=== PATIENT | male | born 1980 | race Caucasian/White ===

== ENCOUNTER 2020-08-09 14:09 | Emergency (ER) | payer OTHER, MEDICAID, SELFPAY ==
[2020-08-09 14:35] VITALS: BP 146/98; PULSE 105; RESP 18; TEMP 36.8; O2SAT 95; BMI 35.5
--- NOTE | 2020-08-09 14:53 | DI.RAD.S_ITS ---
PROCEDURE: XR ACUTE ABDOMEN SERIES INDICATIONS: ? hernia/abdominal pain TECHNIQUE: One view chest and two views of the abdomen were acquired. COMPARISON: None. FINDINGS: Surgical changes and devices: None. Chest: Lungs are clear. Heart size is normal. No pleural effusions. No pneumoperitoneum. Abdomen: Bowel gas pattern is nonspecific. No suspicious calcifications. Visualized solid organ contours appear normal. Bones: No suspicious bony lesions. IMPRESSION: Nonspecific bowel gas pattern without definite evidence of obstruction. If patient's symptoms persist or worsen, consider CT scan of the abdomen/pelvis for further evaluation. Dictated by: Ximena Khan MD, PhD on 08/09/2020 at 15:38 Approved by: Ximena Khan MD, PhD on 08/09/2020 at 15:39
--- NOTE | 2020-08-09 14:55 | ED.PSYCH ---
HPI - Psych <Renae Stanton DO - Last Filed: 08/09/20 18:28> General Chief Complaint: Psychiatric Symptoms Stated Complaint: hallucenations and suicidal Time Seen by Provider: 08/09/20 14:26 Source: patient and family Mode of arrival: Ambulatory Limitations: no limitations History of Present Illness HPI Narrative: This is a 39-year-old male who comes emergency department with complaint of auditory hallucinations which he states have been longstanding. He states that he does feel suicidal, he does have a plan but that he is not wanting to share. He states that this is been a longstanding issue and is not new or different for him. Today he went to primary care office to establish care and refill medications which ran out about 1-2 weeks ago and he was sent here because of his auditory hallucinations and suicidal thoughts. He is accompanied by his partner. Patient moved from [place] about a month ago and has had trouble establishing care here locally and this is his 1st appointment today. Patient states he has been hospitalized in the past for PTSD. He denies any thoughts of harm to others. He states he does have hypertension, he states he has a long list of medical problems and takes multiple medications but is unable to describe most of them. He does know that he took clonazepam, hydrochlorothiazide and use clonidine patches. Patient does drink alcohol he is unclear about the amount but does say it is large amount and that he wants to drink all the time, he does use tobacco, rare THC but no illicit. His partner also confirms this as well. He is also noted to have some discomfort in the umbilical area. Related Data Previous Rx's Medication Instructions Recorded quetiapine 25 mg tablet 25 mg PO BID #28 tab 08/09/20 Allergies Allergy/AdvReac Type Severity Reaction Status Date / Time tramadol AdvReac Verified 08/09/20 13:13 Review of Systems <Renae Stanton DO - Last Filed: 08/09/20 18:28> Review of Systems ROS Unobtainable: All systems reviewed & are unremarkable except as noted in HPI and below Patient History <Renae Stanton DO - Last Filed: 08/09/20 18:28> Medical History (Updated 08/09/20 @ 16:31 by Renae Stanton DO) Acute depression (Chronic) Schizo affective schizophrenia (Suspected) Social History Smoking Status: Current every day smoker Smoking Status: Current every day smoker alcohol intake frequency: 3 or more drinks per day Exam <Renae Stanton DO - Last Filed: 08/09/20 18:28> Narrative Exam Narrative: GENERAL: Alert and oriented x three, obese male in moderate distress. HEENT: Head normocephalic, atraumatic, EOMI, pupils reactive, face symmetric, moist mucous membranes NECK: Supple, full range of motion CARDIOVASCULAR: Regular rate and rhythm without murmurs, rubs or gallops. RESPIRATORY: Breath sounds equal bilaterally, no wheezes rales or rhonchi. ABDOMEN: Soft, mild tenderness of the umbilical area with mild bulge. Normoactive bowel sounds all 4 quadrants. No guarding or rebound, rigidity, no mass : No CVA tenderness EXTREMITIES: Normal range of motion, no clubbing or edema. Neurovascularly intact NEUROLOGICAL: Cranial nerves II through XII grossly intact. Moving all extremities SKIN: Warm, dry, no petechiae, no rashes or lesions. PSYCH: Positive for suicidal thoughts, auditory hallucinations, negative for homicidal thoughts. Patient does jump from topic to topic but follows the conversation well. Initial Vital Signs Initial Vital Signs: Vital Signs Temperature 98.3 F 08/09/20 14:35 Pulse Rate 105 H 08/09/20 14:35 Respiratory Rate 18 08/09/20 14:35 Blood Pressure 146/98 H 08/09/20 14:35 Pulse Oximetry 95 08/09/20 14:35 <Roderick Ward DO - Last Filed: 08/10/20 06:33> Initial Vital Signs Initial Vital Signs: Vital Signs Temperature 98.3 F 08/09/20 14:35 Pulse Rate 105 H 08/09/20 14:35 Respiratory Rate 18 08/09/20 14:35 Blood Pressure 146/98 H 08/09/20 14:35 Pulse Oximetry 95 08/09/20 14:35 Scores <Renae Stanton DO - Last Filed: 08/09/20 18:28> GCS Geovani coma scale eye opening: Spontaneous Geovani coma scale verbal response: Orientated Geovani coma scale motor response: Obey commands [place] coma scale total score: 15 Course <Renae Stanton DO - Last Filed: 08/09/20 18:28> Orders Ordered: ED Orders 08/10/20 06:00 Ethanol (ETOH) Stat Discontinued Medications Lorazepam (Ativan) 2 mg PO NOW ONE Stop: 08/09/20 17:16 Last Admin: 08/09/20 17:23 Dose: 2 mg Documented by: BRIANA Lorazepam (Ativan) 1 mg PO NOW ONE Stop: 08/09/20 23:57 Last Admin: 08/09/20 23:59 Dose: 1 mg Documented by: BRIANA Lorazepam (Ativan) 1 mg PO NOW ONE Stop: 08/10/20 05:10 Last Admin: 08/10/20 05:59 Dose: Not Given Documented by: ANIBAL Lorazepam (Ativan) 1 mg IV NOW ONE Stop: 08/10/20 05:20 Last Admin: 08/10/20 05:59 Dose: Not Given Documented by: ANIBAL Lorazepam (Ativan) 1 mg PO NOW ONE Stop: 08/10/20 05:39 Last Admin: 08/10/20 06:00 Dose: Not Given Documented by: ANIBAL Lorazepam (Ativan) 1 mg IM NOW ONE Stop: 08/10/20 05:44 Last Admin: 08/10/20 05:57 Dose: 1 mg Documented by: ANIBAL Nicotine (Nicoderm) 21 mg TOP NOW ONE Stop: 08/09/20 14:54 Last Admin: 08/09/20 15:06 Dose: 21 mg Documented by: BRIANA Olanzapine (Zyprexa Zydis) 10 mg PO NOW ONE Stop: 08/09/20 14:54 Last Admin: 08/09/20 15:07 Dose: 10 mg Documented by: BRIANA Vital Signs Vital signs: Vital Signs - 8 hr 08/10/20 05:00 Temperature 97.4 F L Pulse Rate 95 H Respiratory Rate 16 Blood Pressure 152/112 H Pulse Oximetry 96 <Roderick Ward DO - Last Filed: 08/10/20 06:33> Orders Ordered: ED Orders 08/10/20 06:00 Ethanol (ETOH) Stat Discontinued Medications Lorazepam (Ativan) 2 mg PO NOW ONE Stop: 08/09/20 17:16 Last Admin: 08/09/20 17:23 Dose: 2 mg Documented by: BRIANA Lorazepam (Ativan) 1 mg PO NOW ONE Stop: 08/09/20 23:57 Last Admin: 08/09/20 23:59 Dose: 1 mg Documented by: BRIANA Lorazepam (Ativan) 1 mg PO NOW ONE Stop: 08/10/20 05:10 Last Admin: 08/10/20 05:59 Dose: Not Given Documented by: ANIBAL Lorazepam (Ativan) 1 mg IV NOW ONE Stop: 08/10/20 05:20 Last Admin: 08/10/20 05:59 Dose: Not Given Documented by: ANIBAL Lorazepam (Ativan) 1 mg PO NOW ONE Stop: 08/10/20 05:39 Last Admin: 08/10/20 06:00 Dose: Not Given Documented by: ANIBAL Lorazepam (Ativan) 1 mg IM NOW ONE Stop: 08/10/20 05:44 Last Admin: 08/10/20 05:57 Dose: 1 mg Documented by: ANIBAL Nicotine (Nicoderm) 21 mg TOP NOW ONE Stop: 08/09/20 14:54 Last Admin: 08/09/20 15:06 Dose: 21 mg Documented by: BRIANA Olanzapine (Zyprexa Zydis) 10 mg PO NOW ONE Stop: 08/09/20 14:54 Last Admin: 08/09/20 15:07 Dose: 10 mg Documented by: BRIANA Vital Signs Vital signs: Vital Signs - 8 hr 08/10/20 05:00 Temperature 97.4 F L Pulse Rate 95 H Respiratory Rate 16 Blood Pressure 152/112 H Pulse Oximetry 96 MDM - Psych <Renae Stanton, - Last Filed: 08/09/20 18:28> Lab Data Attestation: I reviewed the patient's lab results. Lab results narrative: Patient's labs show elevation in chloride, slight elevation in glucose and his ETOH is 378. X-ray shows no clear signs of obstruction with nospecific bowel gas pattern. Result diagrams: 08/09/20 15:30 08/09/20 15:30 Labs: Lab Results 08/09/20 08/09/20 08/09/20 Range/Units 15:30 15:30 15:30 WBC 9.6 (4.5-11.0) X10^3/uL RBC 5.03 (4.5-5.9) X10^6/uL Hgb 15.9 (13.5-17.5) g/dL Hct 47.2 (41-53) % MCV 93.9 (80-100) fL MCH 31.6 (26-34) PG MCHC 33.6 (30-36) % RDW 13.7 (11.6-14.8) % Plt Count 216 (150-400) X10^3/uL Neut % (Auto) 44.6 L (50-75) % Lymph % (Auto) 49.7 H (25-40) % [place] % (Auto) 3.9 (3-14) % Eos % (Auto) 0.8 L (2-4) % Baso % (Auto) 1.0 (0-2) % Neut # (Auto) 4300 (3504-8926) /uL Lymph # (Auto) 4800 H (8807-1325) /uL [place] # (Auto) 400 (0-900) /uL Eos # (Auto) 100 (0-450) /uL Baso # (Auto) 100 (0-100) /uL Sodium 145 (137-145) mmol/L Potassium 4.0 (3.4-5.1) mmol/L Chloride 110 H (98-107) mmol/L Carbon Dioxide 22 (22-32) mmol/L BUN 10 (9-20) mg/dL Creatinine 0.64 L (0.66-1.25) mg/dL Estimated GFR > 60.0 (>60) mL/min BUN/Creatinine Ratio 15.6 (6-22) Glucose 106 H (70-100) mg/dL Calcium 8.7 (8.4-10.2) mg/dL Total Bilirubin 0.4 (0.2-1.3) mg/dL AST 90 H (17-59) IU/L ALT 59 H (<50) IU/L Alkaline Phosphatase 87 (38-126) U/L Total Protein 8.6 H (6.3-8.2) g/dL Albumin 4.7 (3.5-5.0) g/dL Globulin 3.9 (1.7-4.1) g/dL Albumin/Globulin Ratio 1.2 (1.0-2.8) Lipase (23-300) U/L TSH 0.618 (0.47-4.68) uIU/mL Ethyl Alcohol 378 H ( - 10) mg/dL 10/29/20 10/30/20 Range/Units 15:30 06:00 WBC (4.5-11.0) X10^3/uL RBC (4.5-5.9) X10^6/uL Hgb (13.5-17.5) g/dL Hct (41-53) % MCV (80-100) fL MCH (26-34) PG MCHC (30-36) % RDW (11.6-14.8) % Plt Count (150-400) X10^3/uL Neut % (Auto) (50-75) % Lymph % (Auto) (25-40) % [place] % (Auto) (3-14) % Eos % (Auto) (2-4) % Baso % (Auto) (0-2) % Neut # (Auto) (5902-5565) /uL Lymph # (Auto) (4726-2162) /uL [place] # (Auto) (0-900) /uL Eos # (Auto) (0-450) /uL Baso # (Auto) (0-100) /uL Sodium (137-145) mmol/L Potassium (3.4-5.1) mmol/L Chloride (98-107) mmol/L Carbon Dioxide (22-32) mmol/L BUN (9-20) mg/dL Creatinine (0.66-1.25) mg/dL Estimated GFR (>60) mL/min BUN/Creatinine Ratio (6-22) Glucose (70-100) mg/dL Calcium (8.4-10.2) mg/dL Total Bilirubin (0.2-1.3) mg/dL AST (17-59) IU/L ALT (<50) IU/L Alkaline Phosphatase (38-126) U/L Total Protein (6.3-8.2) g/dL Albumin (3.5-5.0) g/dL Globulin (1.7-4.1) g/dL Albumin/Globulin Ratio (1.0-2.8) Lipase 216 (23-300) U/L TSH (0.47-4.68) uIU/mL Ethyl Alcohol 32 H ( - 10) mg/dL Imaging Data Abdominal x-ray: Radiologist's Impression: [address] [address] XRay Report Signed Patient: QuintinDeloris#: [id number] : 1980Acct:[id number] Age/Sex: 39 / MDate of Service: 08/09/20 Loc: ED Accession Number: [id number] Procedure: XR acute abdomen series Ordering Provider: Renae Stanton D.O. PROCEDURE: XR ACUTE ABDOMEN SERIES INDICATIONS: ? hernia/abdominal pain TECHNIQUE: One view chest and two views of the abdomen were acquired. COMPARISON: None. FINDINGS: Surgical changes and devices: None. Chest: Lungs are clear. Heart size is normal. No pleural effusions. No pneumoperitoneum. Abdomen: Bowel gas pattern is nonspecific. No suspicious calcifications. Visualized solid organ contours appear normal. Bones: No suspicious bony lesions. IMPRESSION: Nonspecific bowel gas pattern without definite evidence of obstruction. If patient's symptoms persist or worsen, consider CT scan of the abdomen/pelvis for further evaluation. Dictated by: Ximena Khan MD, PhD on 08/09/2020 at 15:38 Approved by: Ximena Khan MD, PhD on 08/09/2020 at 15:39 ECG Data Attestation: I personally reviewed and interpreted this ECG as follows: Prior ECG tracings: not available for review Interpretation: Sinus rhythm rate of 99 P are 168 QRS of 121 and QTC of 424. Patient has T-wave inversion, no elevation appreciated. RSR in V1. No prior EKG on record. MDM Narrative Medical decision making narrative: Patient sent by primary care for auditory hallucinations and suicidal ideation. Per patient this is a longstanding issue, he also has significant alcohol abuse according to him and his partner. I asked if he would speak with social which he did, patient was given Zyprexa as he is feeling quite anxious and nicotine patch. During his stay was cooperative but then left shortly after talking to the forensic social worker, he also left his partner behind in the ED. PD was contacted as patient is intoxicated and admits to suicidal ideation, patient was not able to be found outside the ED or on the grounds. Patient was found by PD. On initial contact he denied that he was himself, but was returned to the department. Patient placed in room 13 and clothes changes. Patient given ativan po for anxiety and potential withdrawl, asymptomatic. Patient is accompanied by his partner. Signed out to Dr. Ward. <Roderick Ward DO - Last Filed: 08/10/20 06:33> Lab Data Labs: Lab Results 08/09/20 08/09/20 08/09/20 Range/Units 15:30 15:30 15:30 WBC 9.6 (4.5-11.0) X10^3/uL RBC 5.03 (4.5-5.9) X10^6/uL Hgb 15.9 (13.5-17.5) g/dL Hct 47.2 (41-53) % MCV 93.9 (80-100) fL MCH 31.6 (26-34) PG MCHC 33.6 (30-36) % RDW 13.7 (11.6-14.8) % Plt Count 216 (150-400) X10^3/uL Neut % (Auto) 44.6 L (50-75) % Lymph % (Auto) 49.7 H (25-40) % [place] % (Auto) 3.9 (3-14) % Eos % (Auto) 0.8 L (2-4) % Baso % (Auto) 1.0 (0-2) % Neut # (Auto) 4300 (3412-2758) /uL Lymph # (Auto) 4800 H (5763-5644) /uL [place] # (Auto) 400 (0-900) /uL Eos # (Auto) 100 (0-450) /uL Baso # (Auto) 100 (0-100) /uL Sodium 145 (137-145) mmol/L Potassium 4.0 (3.4-5.1) mmol/L Chloride 110 H (98-107) mmol/L Carbon Dioxide 22 (22-32) mmol/L BUN 10 (9-20) mg/dL Creatinine 0.64 L (0.66-1.25) mg/dL Estimated GFR > 60.0 (>60) mL/min BUN/Creatinine Ratio 15.6 (6-22) Glucose 106 H (70-100) mg/dL Calcium 8.7 (8.4-10.2) mg/dL Total Bilirubin 0.4 (0.2-1.3) mg/dL AST 90 H (17-59) IU/L ALT 59 H (<50) IU/L Alkaline Phosphatase 87 (38-126) U/L Total Protein 8.6 H (6.3-8.2) g/dL Albumin 4.7 (3.5-5.0) g/dL Globulin 3.9 (1.7-4.1) g/dL Albumin/Globulin Ratio 1.2 (1.0-2.8) Lipase (23-300) U/L TSH 0.618 (0.47-4.68) uIU/mL Ethyl Alcohol 378 H ( - 10) mg/dL 08/09/20 08/10/20 Range/Units 15:30 06:00 WBC (4.5-11.0) X10^3/uL RBC (4.5-5.9) X10^6/uL Hgb (13.5-17.5) g/dL Hct (41-53) % MCV (80-100) fL MCH (26-34) PG MCHC (30-36) % RDW (11.6-14.8) % Plt Count (150-400) X10^3/uL Neut % (Auto) (50-75) % Lymph % (Auto) (25-40) % [place] % (Auto) (3-14) % Eos % (Auto) (2-4) % Baso % (Auto) (0-2) % Neut # (Auto) (8793-3930) /uL Lymph # (Auto) (7563-3437) /uL [place] # (Auto) (0-900) /uL Eos # (Auto) (0-450) /uL Baso # (Auto) (0-100) /uL Sodium (137-145) mmol/L Potassium (3.4-5.1) mmol/L Chloride (98-107) mmol/L Carbon Dioxide (22-32) mmol/L BUN (9-20) mg/dL Creatinine (0.66-1.25) mg/dL Estimated GFR (>60) mL/min BUN/Creatinine Ratio (6-22) Glucose (70-100) mg/dL Calcium (8.4-10.2) mg/dL Total Bilirubin (0.2-1.3) mg/dL AST (17-59) IU/L ALT (<50) IU/L Alkaline Phosphatase (38-126) U/L Total Protein (6.3-8.2) g/dL Albumin (3.5-5.0) g/dL Globulin (1.7-4.1) g/dL Albumin/Globulin Ratio (1.0-2.8) Lipase 216 (23-300) U/L TSH (0.47-4.68) uIU/mL Ethyl Alcohol 32 H ( - 10) mg/dL [facility] Narrative Medical decision making narrative: Dr ward: Patient stable overnight. Restraint order has been removed since he is no longer attempting to leave the emergency department. Was re-dosed a couple times with Ativan. Alcohol level now below legal limit. Is currently not expressing any SI however given his state of presentation last evening feel that re-evaluation by social work is needed. Care turned over to Dr. Cesar at change of shift to follow up. Discharge Plan Departure Patient Disposition: Xfer Psychiatric Hosp Clinical Impression: Hallucinations, Suicidal ideation, Alcohol intoxication Referrals: Chip Gonzalez MD [Primary Care Provider] - Stand Alone Forms: Against Medical Advice ED Sign-out <Renae Stanton, DO - Last Filed: 08/09/20 18:28> Sign Out Provider Sign Out Attestation: Patient Sign Out occurred on at . Patient's care was discussed, and care was transferred from to Dr. Ward.
[2020-08-09] MEDS: NICOTINE 21 MG PATCH TOP (15:06)
[2020-08-09] MEDS: OLANZapine ODT 10 MG TAB PO (15:07)
[2020-08-09 15:43] LABS: Add Manual Diff / Slide Review NO; Basophils Absolute Auto 100 /uL (0-100); Eosinophils Absolute Auto 100 /uL (0-450); Eosinophils Percent Auto 0.8 % (2-4); Hematocrit 47.2 % (41-53); Hemoglobin 15.9 g/dL (13.5-17.5); Lymphocytes Absolute Auto 4800 /uL (1100-4500); Lymphocytes Percent Auto 49.7 % (25-40); Mean Corpuscular HGB Conc 33.6 % (30-36); Mean Corpuscular Hemoglobin 31.6 PG (26-34); Mean Corpuscular Volume 93.9 fL (80-100); Monocytes Absolute Auto 400 /uL (0-900); Monocytes Percent Auto 3.9 % (3-14); Neutrophils Absolute Auto 4300 /uL (1500-7000); Neutrophils Percent Auto 44.6 % (50-75); Platelet Count 216 X10^3/uL (150-400); Red Blood Cell Count 5.03 X10^6/uL (4.5-5.9); Red Cell Distribution Width 13.7 % (11.6-14.8); White Blood Cell Count 9.6 X10^3/uL (4.5-11.0)
[2020-08-09 15:57] LABS: Alanine Aminotransferase 59 IU/L (<50); Albumin 4.7 g/dL (3.5-5.0); Albumin Globulin Ratio 1.2 (1.0-2.8); Alkaline Phosphatase 87 U/L (38-126); Aspartate Aminotransferase 90 IU/L (17-59); BUN Creatinine Ratio 15.6 (6-22); Bilirubin Total 0.4 mg/dL (0.2-1.3); Blood Urea Nitrogen 10 mg/dL (9-20); Calcium 8.7 mg/dL (8.4-10.2); Carbon Dioxide 22 mmol/L (22-32); Chloride 110 mmol/L (98-107); Estimated Glomerular Filt Rate > 60.0 mL/min (>60); Globulin 3.9 g/dL (1.7-4.1); Glucose 106 mg/dL (70-100); HEMOLYSIS < 15 (0-50); Lipase 216 U/L (23-300); Sodium 145 mmol/L (137-145); Total Protein 8.6 g/dL (6.3-8.2)
[2020-08-09 16:04] LABS: Ethanol (ETOH) 378 mg/dL
--- NOTE | 2020-08-09 16:25 | PC.NURSE ---
went to check on patient. Partner states patient just ran out of room approximately 1620. Hospital security notified and premises searched. 911 called and notified.
[2020-08-09 16:32] LABS: Thyroid Stimulating Hormone 0.618 uIU/mL (0.47-4.68)
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
--- NOTE | 2020-08-09 17:00 | PC.NURSE ---
[employer] and nursing staff in with Pt
--- NOTE | 2020-08-09 17:05 | PC.NURSE ---
Patient brought back to ED by [employer]. Placed into room 13, all belonging removed, and changed into paper scrubs. Significant other in room with patient per his request. Sitter outside room for 1:1.
--- NOTE | 2020-08-09 17:17 | PC.NURSE ---
Pt is laying in bed, significant other sitting in a chair close by. Pt seems calm, quiet.
[2020-08-09] MEDS: LORazepam 0.5 MG TABLET 2 MG PO (17:23)
--- NOTE | 2020-08-09 17:31 | PC.NURSE ---
Pt lying on gurney quietly, Pt partner Chavez in Rm at bedside
[2020-08-09] MEDS: LORazepam 0.5 MG TABLET 1 MG PO (23:59)
--- NOTE | 2020-08-10 00:25 | PC.NURSE ---
Patient provided with gingerale and sandwhiches by health and safety instructor. Remains under 1:1 supervision. Significant other provider with lounging chair to sleep in room.
--- NOTE | 2020-08-10 03:20 | PC.NURSE ---
DR Ward d/jayant'd restraints on 08/09/20 at 2110.He remained in room 13 under constant observation with door open.
[2020-08-10 05:00] VITALS: BP 152/112; PULSE 95; RESP 16; TEMP 36.3; O2SAT 96
[2020-08-10] MEDS: LORazepam 2 MG/ML INJ 1 MG IM (05:57)
[2020-08-10 06:21] LABS: Ethanol (ETOH) 32 mg/dL
[2020-08-10 07:19] LABS: UR Morphine/Opiate cutoff 300 Negative (Negative); Ur Creatinine Normal (Normal); Ur Specific Gravity Normal (Normal); Urine Amphetamines Negative (Negative); Urine Barbiturates Negative (Negative); Urine Benzodiazepines Negative (Negative); Urine Cocaine Negative (Negative); Urine MDMA Negative (Negative); Urine Methadone Negative (Negative); Urine Methamphetamines Negative (Negative); Urine Oxycodone Negative (Negative); Urine Phencyclidine Negative (Negative); Urine Tetrahydrocannabinol Negative (Negative); Urine Tricyclic Antidepressant Positive (Negative); Urine pH Normal (Normal)
[2020-08-10 09:10] VITALS: BP 162/98; PULSE 112; RESP 18; O2SAT 95
== END 2020-08-10 09:31 | disposition home or self-care (01) ==
PROVIDERS: Emergency Medicine; Emergency Provider Emergency Medicine; PCP Family Medicine
DX: R44.0 Auditory hallucinations (principal); R45.851 Suicidal ideations; F10.129 Alcohol abuse with intoxication, unspecified; Y90.1 Blood alcohol level of 20-39 mg/100 ml; I10 Essential (primary) hypertension; E66.9 Obesity, unspecified
CPT/HCPCS: 36415; 74022; 80053; 80305; 80320; 83690; 84443; 85025; 93005; 93010; 96372; 99285; J2060

== ENCOUNTER → 2020-08-27 14:18 | Outpatient (CLI) | payer OTHER, MEDICAID, SELFPAY ==
--- NOTE | 2020-08-27 14:20 | DI.US.S_ITS ---
PROCEDURE: US THYROID INDICATIONS: Evaluate enlarged left node TECHNIQUE: Real-time scanning was performed of the thyroid gland, with image documentation. COMPARISON: [facility], US, US ABDOMEN LIMITED, 08/27/2020, 15:05. FINDINGS: Right: Thyroid lobe measures 3.8 x 1.2 x 1.2 cm, and is homogeneous in echotexture. Left: Thyroid lobe measures 4.4 x 1.3 x 1.2 cm, and is homogenous in echotexture. Isthmus: 2.6 mm thick. IMPRESSION: Normal thyroid, without nodules identified. No enlarged lymph nodes are detected on these images. Dictated by: Vin Murray M.D. on 08/27/2020 at 16:05 Approved by: Vin Murray M.D. on 08/27/2020 at 16:07
--- NOTE | 2020-08-27 14:20 | DI.US.S_ITS ---
PROCEDURE: US ABDOMEN LIMITED INDICATIONS: evaluate TECHNIQUE: Real-time scanning was performed of the abdominal and retroperitoneal organs, with image documentation. COMPARISON: None. FINDINGS: There is a fat and bowel containing umbilical hernia present which increases in size with Valsalva. No definite evidence for reduce ability. IMPRESSION: Bowel and fat containing umbilical hernia, likely non reducible. Dictated by: Gerda Abbasi M.D. on 08/27/2020 at 16:30 Approved by: Gerda Abbasi M.D. on 08/27/2020 at 16:32
[2020-08-27 14:39] LABS: Bacteria Urine None Seen; RBC Urine None Seen (0-5/HPF)
[2020-08-27 15:25] LABS: Add Manual Diff / Slide Review NO; Basophils Absolute Auto 0 /uL (0-100); Basophils Percent Auto 0.8 % (0-2); Eosinophils Absolute Auto 100 /uL (0-450); Eosinophils Percent Auto 1.3 % (2-4); Hematocrit 37.2 % (41-53); Hemoglobin 12.5 g/dL (13.5-17.5); Lymphocytes Absolute Auto 1900 /uL (1100-4500); Mean Corpuscular HGB Conc 33.5 % (30-36); Mean Corpuscular Hemoglobin 31.6 PG (26-34); Mean Corpuscular Volume 94.2 fL (80-100); Monocytes Absolute Auto 600 /uL (0-900); Monocytes Percent Auto 11.8 % (3-14); Neutrophils Absolute Auto 2600 /uL (1500-7000); Neutrophils Percent Auto 49.1 % (50-75); Platelet Count 139 X10^3/uL (150-400); Red Blood Cell Count 3.95 X10^6/uL (4.5-5.9); Red Cell Distribution Width 13.4 % (11.6-14.8); White Blood Cell Count 5.2 X10^3/uL (4.5-11.0)
[2020-08-27 15:27] LABS: Appearance Urine UA CLEAR; Bilirubin Urine UA NEGATIVE (NEGATIVE); Color Urine UA YELLOW; Glucose Urine UA NEGATIVE (Negative); Ketones Urine UA TRACE (NEGATIVE); Leukocyte Esterase Urine UA NEGATIVE (NEGATIVE); Nitrite Urine UA NEGATIVE (Negative); Occult Blood Urine UA NEGATIVE (Negative); Protein Urine UA NEGATIVE (Negative); Specific Gravity Urine UA 1.025 (1.000-1.035); Urobilinogen Urine UA 0.2 E.U./dL (0.2); pH Urine UA 5.5 (4.5-8.0)
[2020-08-27 15:33] LABS: Hemoglobin A1C% w Est Avg Glu 5.4 % (4.0-6.0)
[2020-08-27 15:42] LABS: Alanine Aminotransferase 63 IU/L (<50); Albumin 4.2 g/dL (3.5-5.0); Albumin Globulin Ratio 1.3 (1.0-2.8); Alkaline Phosphatase 74 U/L (38-126); Aspartate Aminotransferase 99 IU/L (17-59); BUN Creatinine Ratio 15.7 (6-22); Bilirubin Total 0.5 mg/dL (0.2-1.3); Blood Urea Nitrogen 11 mg/dL (9-20); Calcium 9.1 mg/dL (8.4-10.2); Carbon Dioxide 29 mmol/L (22-32); Chloride 105 mmol/L (98-107); Cholesterol 151 mg/dL (140-199); Estimated Glomerular Filt Rate > 60.0 mL/min (>60); Globulin 3.3 g/dL (1.7-4.1); Glucose 85 mg/dL (70-100); HDL Cholesterol 50 mg/dL (40-60); HEMOLYSIS < 15 (0-50); LDL Cholesterol Calculated 73 mg/dL (<100); Potassium 3.9 mmol/L (3.4-5.1); Sodium 138 mmol/L (137-145); Total Protein 7.5 g/dL (6.3-8.2); Triglycerides 141 mg/dL (35-150)
[2020-08-27 15:58] LABS: Culture Indicated Urine Cult Not Indicated; Squamous Epithelial Cell Urine 0-1 /HPF (0-5/HPF); WBC Urine 0-1/HPF (0-5/HPF)
[2020-08-27 16:44] LABS: TSH w/ Reflex to FT4 3.25 uIU/mL (0.47-4.68)
== END ==
PROVIDERS: PCP Family Medicine; Referring Provider Family Medicine; Visit Provider Family Medicine
DX: K42.9 Umbilical hernia without obstruction or gangrene (principal); E04.9 Nontoxic goiter, unspecified; F25.9 Schizoaffective disorder, unspecified; F32.9 Major depressive disorder, single episode, unspecified; G47.00 Insomnia, unspecified; Z80.8 Family history of malignant neoplasm of other organs or systems
CPT/HCPCS: 36415; 76536; 76705; 80053; 80061; 81001; 83036; 84443; 85025

== ENCOUNTER → 2020-09-25 10:57 | Outpatient (CLI) | payer OTHER, MEDICAID, SELFPAY ==
[2020-09-25 11:29] LABS: COVID19 -Nasal RAPID Negative (Negative)
== END ==
PROVIDERS: PCP Family Medicine; Visit Provider Surgery
DX: Z01.812 Encounter for preprocedural laboratory examination (principal); Z20.828 Contact with and (suspected) exposure to other viral communicable diseases
CPT/HCPCS: 87635; C9803

== ENCOUNTER 2020-09-26 11:05 | Day surgery (SDC) | payer OTHER, MEDICAID, SELFPAY ==
[2020-09-24 15:10] VITALS: BMI 34.4
[2020-09-26] VITALS (8 sets, daily range): BP systolic 110–143; BP diastolic 60–81; PULSE 67–97; RESP 11–18; TEMP 36.2–36.6; O2SAT 95–98; BMI 34.4
[2020-09-26] MEDS: LACTATED RINGERS 1,000 ML 42 ML IV (12:01)
--- NOTE | 2020-09-26 13:00 | PM.PREOP ---
Pre-operative Note COVID-19 COVID-19 status: Negative Result date/Date tested (Pos, Neg/Pending): 09/25/20 Interval Note History & Physical reviewed/Exam performed by Physician: Yes Changes to H&P: No
[2020-09-26] MEDS: CEFAZOLIN 2 GM/100 ML FROZ.PIGGY IV (13:25)
[2020-09-26] MEDS: CEFAZOLIN 1 GM/50 ML FROZ.PIGGY IV (13:34)
--- NOTE | 2020-09-26 13:43 | SUR.OPER ---
Supine on padded OR bed, head on pillow, arms secured on padded arm boards at <90 degrees abduction, legs uncrossed, safety belt at thigh, tape over blanket over lower legs.
[2020-09-26] MEDS: BUPIVACAINE 0.25% W/ EPI (PF) 10 ML VIAL 20 ML INJ (13:47)
[2020-09-26] MEDS: BUPIVACAINE LIPOSOME 266 MG/20 ML VIAL INJ (13:59)
[2020-09-26] MEDS: OXYCODONE/ACETAMINOPHEN 5/325 TABLET 1 TAB PO ×2 (14:25→14:45)
[2020-09-26] MEDS: ONDANSETRON 4 MG/2 ML INJ (14:39)
--- NOTE | 2020-09-26 14:39 | PM.OP.1 ---
Operative Date/Time/Diagnoses Date of procedure: 09/26/20 Time of procedure: 14:39 Pre-op diagnosis: Incarcerated umbilical hernia Post-op diagnosis: same Procedure & Clinicians Procedure: Open repair of incarcerated umbilical hernia Same procedure as scheduled: Yes Indications: Tender non reducible umbilical hernia Surgeon: Maxine Guillory Click Yes if Unassisted: Yes Anesthesia Type: General Operative Notes Findings: 1.5cm umbilical defect with incarcerated omentum Specimen(s): none sent Prosthetic devices, grafts, tissues, transplants, or devices: BARD ventralex 4.3cm mesh Estimated Blood Loss (mL): 1 Blood products transfused: none Procedure in detail: The patient was brought to the operating room, placed supine on the operating table, and sequential compression devices were placed on both legs and turned on. Appropriate perioperative antibiotics were given. General anesthesia was induced by the anesthesiologist and the patient was intubated by Dr. Vann. The abdomen was then prepped and draped in sterile fashion, and a surgical time-out was conducted. At this point local anesthetic was injected using 0.25% Marcaine with epi, at the site of the planned incision. A 3cm transverse curvilinear incision was then made in the skin on the inferior border of the umbilicus. Dissection was then carried down through the dermis and subcutaneous tissue, until the hernia sac was encountered. I dissected circumferentially around the hernia sac, which was then opened, and dissected free from the umbilical skin. Upon opening the sac, I found incarcerated omentum stuck within the sack. This was carefully dissected free and reduced into the abdomen. The hernia defect was 1.5cm in diameter. The hernia sac was reduced through the defect, and a [4.3cm] BARD Ventralex mesh was brought into the field and placed into the defect, between the peritoneum and the fascia. It was then sutured to the fascia in four corners using 0 Vicryl suture. I then closed the defect with 0 Vicryl figure of eights. I then injected the fascia with 20mL of 0.25% Marcaine with epi, and 20mL of Exparel in small aliquots. I then covered the sutures with subcutaneous fat bringing it together with 3-0 Vicryl suture, tacked down the umbilical skin with 3-0 Vicryl and closed the skin with subcuticular Monocryl 4-0. The skin edges were then sealed with Dermabond. This concluded the procedure. Two cotton balls were placed in the umbilicus and covered with a Tegaderm. The patient was awakened from anesthesia and extubated. He was transferred onto his [facility]. The patient was then transferred to the postanesthesia care unit in stable condition. He tolerated the procedure well. Needle sponge and instrument counts were correct x2 at the end of the case. Complications: none Post-operative Condition: stable Disposition: PACU
== END 2020-09-26 15:19 | disposition home or self-care (01) ==
PROVIDERS: PCP Family Medicine; Referring Provider Surgery; Visit Provider Surgery
PROC: (CPT 49587; principal; 2020-09-26 12:15)
DX: K42.0 Umbilical hernia with obstruction, without gangrene (principal); E66.9 Obesity, unspecified; Z68.34 Body mass index [BMI] 34.0-34.9, adult; F41.9 Anxiety disorder, unspecified; F32.9 Major depressive disorder, single episode, unspecified; F25.9 Schizoaffective disorder, unspecified; I10 Essential (primary) hypertension; M54.9 Dorsalgia, unspecified; F17.210 Nicotine dependence, cigarettes, uncomplicated
CPT/HCPCS: 49587; C1781; C9290; J0330; J0690; J1100; J1885; J2250; J2405; J2704; J3010

== ENCOUNTER 2020-09-27 21:34 | Emergency (ER) | payer OTHER, MEDICAID, SELFPAY ==
[2020-09-27 21:44] VITALS: BP 146/103; PULSE 91; RESP 20; TEMP 37.2; O2SAT 99; BMI 37.3
[2020-09-27 22:44] LABS: Add Manual Diff / Slide Review NO; Basophils Absolute Auto 100 /uL (0-100); Basophils Percent Auto 1.2 % (0-2); Eosinophils Absolute Auto 100 /uL (0-450); Eosinophils Percent Auto 1.1 % (2-4); Hematocrit 40.7 % (41-53); Hemoglobin 13.4 g/dL (13.5-17.5); Lymphocytes Absolute Auto 3900 /uL (1100-4500); Lymphocytes Percent Auto 32.5 % (25-40); Mean Corpuscular Hemoglobin 31.2 PG (26-34); Mean Corpuscular Volume 94.5 fL (80-100); Monocytes Absolute Auto 1100 /uL (0-900); Monocytes Percent Auto 9.1 % (3-14); Neutrophils Absolute Auto 6700 /uL (1500-7000); Neutrophils Percent Auto 56.1 % (50-75); Platelet Count 218 X10^3/uL (150-400); Prothrombin Time 11.6 SECONDS (10.1-12.7); Red Blood Cell Count 4.31 X10^6/uL (4.5-5.9); Red Cell Distribution Width 14.3 % (11.6-14.8); White Blood Cell Count 11.9 X10^3/uL (4.5-11.0)
[2020-09-27 22:46] LABS: PTT Partial Thromboplastin Tim 31 SECONDS (26.4-36.2)
[2020-09-27 22:47] LABS: Alanine Aminotransferase 66 IU/L (<50); Albumin 4.3 g/dL (3.5-5.0); Albumin Globulin Ratio 1.2 (1.0-2.8); Alkaline Phosphatase 59 U/L (38-126); Aspartate Aminotransferase 71 IU/L (17-59); BUN Creatinine Ratio 19.4 (6-22); Bilirubin Total 0.2 mg/dL (0.2-1.3); Blood Urea Nitrogen 13 mg/dL (9-20); Calcium 9.1 mg/dL (8.4-10.2); Carbon Dioxide 26 mmol/L (22-32); Chloride 106 mmol/L (98-107); Estimated Glomerular Filt Rate > 60.0 mL/min (>60); Globulin 3.7 g/dL (1.7-4.1); Glucose 104 mg/dL (70-100); HEMOLYSIS 25 (0-50); Lipase 239 U/L (23-300); Potassium 4.2 mmol/L (3.4-5.1); Sodium 137 mmol/L (137-145)
--- NOTE | 2020-09-27 23:26 | DI.CT.S_ITS ---
PROCEDURE: CT ABDOMEN PELVIS W CON INDICATIONS: abdominal pain/status post surgery TECHNIQUE: After the administration of intravenous contrast, 5 mm thick sections acquired from the diaphragm to the symphysis. 5 mm coronal and sagittal reformats were acquired. For radiation dose reduction, the following was used: automated exposure control, adjustment of mA and/or kV according to patient size. COMPARISON: [facility], , ABDOMEN LIMITED, 08/27/2020, 15:05. FINDINGS: Image quality: Excellent. ABDOMEN: Lung bases: Lung bases are clear. Heart size is normal. Small hiatal hernia. Solid organs: Liver is normal in size and enhancement. Gallbladder is normal . Biliary system is non dilated. Pancreas enhances normally. Spleen is normal in size and enhancement. No adrenal nodules. Kidneys demonstrate normal size and enhancement, without hydronephrosis. Peritoneum and bowel: Bowel loops demonstrate normal wall thickness and caliber. No free fluid or air. Nodes and vessels: No retroperitoneal or mesenteric adenopathy by size criteria. Aorta and inferior vena cava are normal in size. Miscellaneous: There is soft tissue stranding around the umbilicus. Small pockets of subcutaneous air and pneumoperitoneum around the umbilicus are noted, presumably related to recent surgery. PELVIS: Genitourinary: Bladder wall thickness is normal. Miscellaneous: No inguinal adenopathy. Small fat containing inguinal hernias are noted. Bones: No suspicious bony lesions. No vertebral body compression fractures. Moderate to severe degenerative disc disease in lumbar spine. IMPRESSION: 1. Soft tissue stranding around the umbilicus consistent with postsurgical inflammation or infection. There are small pockets of subcutaneous air and pneumoperitoneum around the umbilicus are noted, presumably related to recent surgery. No hematoma or abscess. 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 Dictated by: Malissa Norris M.D. on 09/28/2020 at 8:13 Approved by: Malissa Norris M.D. on 09/28/2020 at 8:17
--- NOTE | 2020-09-27 23:27 | ED_ITS ---
HPI - Abdominal Pain General Chief Complaint: Abdominal Pain Stated Complaint: recent surgery, incision site is burning Time Seen by Provider: 09/27/20 22:56 Source: patient Mode of arrival: Ambulatory History of Present Illness HPI narrative: Patient status post umbilical hernia surgery postop day 1. Dr. Rendon yesterday. Since then nausea and pain at surgical site. No fever chills. No discharge from wound. Is on Percocet without pain relief. Has appointment tomorrow morning with the surgeon. No other complaints Related Data Home Medications Medication Instructions Recorded Confirmed escitalopram oxalate 20 mg tablet 20 mg PO DAILY 08/31/20 09/26/20 lisinopril 20 mg tablet 20 mg PO DAILY 08/31/20 09/26/20 Previous Rx's Medication Instructions Recorded hydroxyzine HCl 25 mg PO QID PRN #30 tab 08/10/20 prazosin 1 mg capsule 1 mg PO QPM #30 cap 08/22/20 trazodone 100 mg tablet 100 mg PO BEDTIME PRN #30 tab 08/22/20 pantoprazole 40 mg tablet,delayed 40 mg PO BID #60 tab 08/31/20 release varenicline 0.5 mg (11)-1 mg (42) See Rx Instructions PO PER PKG DIR 08/31/20 tablets in a dose pack #53 ea docusate sodium 100 mg PO BID #20 cap 09/26/20 oxycodone 5 mg PO Q6H PRN #20 tab 09/26/20 Allergies Allergy/AdvReac Type Severity Reaction Status Date / Time tramadol AdvReac Severe Seizure Verified 09/27/20 21:48 hydrocodone AdvReac Intermediate ITCHING Verified 09/27/20 21:48 Review of Systems Review of Systems Narrative: GENERAL: Denies chills, fatigue, malaise, fever, sweats. HEENT: Denies sinus pain, ear pain, sore throat, difficulty swallowing RESPIRATORY: Denies dyspnea, cough CARDIOVASCULAR: Denies chest pain, palpitations, edema, GASTROINTESTINAL: Complains of nausea, denies vomiting, complains abdominal pain, denies diarrhea, constipation, melena. : Denies dysuria, frequency, hematuria MUSCULOSKELETAL: denies muscle or bony pain SKIN: Denies rash, skin lesions NEUROLOGIC: Denies weakness, headache, numbness, change in speech, confusion PSYCHIATRIC: No SI or HI or hallucinations ROS Unobtainable: All systems reviewed & are unremarkable except as noted in HPI and below Patient History Medical History Acute depression Hypertension Insomnia Moderate dependence on smoking Schizo affective schizophrenia Umbilical hernia Surgical History Hx of shoulder surgery Hx of tonsillectomy Family History Father Hypertension Cancer Brother Hypertension Gallstones Diabetes mellitus Mother Diabetes mellitus Sister Diabetes mellitus Grandmother Diabetes mellitus Grandfather Stroke Social History marital status: unknown household members: significant other Smoking Status: Former smoker alcohol intake: former substance use type: does not use Smoking Status: Former smoker alcohol intake frequency: other Substance Use Type: does not use Exam Narrative Exam Narrative: GENERAL: patient appears stated age. Well-nourished, well- developed patient, in no distress, not toxic not dyspneic HEAD: Normocephalic. EYES: Pupils equal round and reactive. No scleral icterus. No injection no discharge ENT: Mucous membranes moist. No drooling no tongue elevation no trismus no malocclusion NECK: Trachea midline. Non tender CARDIOVASCULAR: Regular rate and rhythm without murmurs, gallops, or rubs. RESPIRATORY: Clear to auscultation. Breath sounds equal bilaterally. No wheezes, rales, or rhonchi. GASTROINTESTINAL: Abdomen soft, no peritoneal signs, mild erythema at the surgical site at the umbilicus. No discharge. No peritoneal signs. Bowel sounds present. No lymphangitis. No red streaking. No pain out of proportion to exam. EXTREMITIES: No gross deformities. BACK: Nontender without deformity or crepitance. No flank tenderness. NEURO: AOx4. SKIN: Warm and dry PSYCH: Not anxious, is cooperative Initial Vital Signs Initial Vital Signs: Vital Signs Temperature 99.0 F 09/27/20 21:44 Pulse Rate 91 H 09/27/20 21:44 Respiratory Rate 20 09/27/20 21:44 Blood Pressure 146/103 H 09/27/20 21:44 Pulse Oximetry 99 09/27/20 21:44 Course Orders Ordered: ED Orders 12/17/20 21:50 EKG-12 Lead Stat 09/27/20 22:25 Complete Blood Count AUTO DIFF Stat Comprehensive Metabolic Panel Stat Lipase Stat Partial Thromboplastin Time Stat Prothrombin Time INR Stat 09/27/20 23:26 CT abdomen pelvis w con Stat Discontinued Medications Sodium Chloride (Normal Saline 0.9%) 1,000 mls @ 1,000 mls/hr IV BOLUS ONE Stop: 09/28/20 00:25 Last Admin: 09/27/20 23:42 Dose: 1,000 mls/hr Documented by: KARIS Morphine Sulfate (Morphine 4 Mg/Ml Inj) 4 mg IV NOW ONE Stop: 09/27/20 23:27 Last Admin: 09/27/20 23:44 Dose: 4 mg Documented by: KARIS Ondansetron HCl (Ondansetron 4 Mg/2 Ml Inj) 4 mg IV NOW ONE Stop: 09/27/20 23:27 Last Admin: 09/27/20 23:44 Dose: 4 mg Documented by: KARIS Reevaluation(s) Reevaluation #1: Pain controlled. Feeling better. Reviewed results with patient. He agrees for discharge in follow-up in the morning as scheduled. He is comfortable with treatment plan Time: 00:20 Vital Signs Vital signs: Vital Signs - 8 hr 09/27/20 21:44 09/28/20 00:05 Temperature 99.0 F Pulse Rate 91 H 100 H Respiratory Rate 20 19 Blood Pressure 146/103 H 153/88 H Pulse Oximetry 99 97 MDM - Abdominal Pain Differential Diagnosis Differential diagnosis: Likely abdominal pain and other (Postoperative pain) Medical Records Attestation: I reviewed the patient's medical records. Lab Data Attestation: I reviewed the patient's lab results. Result diagrams: 09/27/20 22:25 09/27/20 22:25 Labs: Lab Results 09/27/20 09/27/20 09/27/20 Range/Units 22:25 22:25 22:25 WBC 11.9 H (4.5-11.0) X10^3/uL RBC 4.31 L (4.5-5.9) X10^6/uL Hgb 13.4 L (13.5-17.5) g/dL Hct 40.7 L (41-53) % MCV 94.5 (80-100) fL MCH 31.2 (26-34) PG MCHC 33.0 (30-36) % RDW 14.3 (11.6-14.8) % Plt Count 218 (150-400) X10^3/uL Neut % (Auto) 56.1 (50-75) % Lymph % (Auto) 32.5 (25-40) % [place] % (Auto) 9.1 (3-14) % Eos % (Auto) 1.1 L (2-4) % Baso % (Auto) 1.2 (0-2) % Neut # (Auto) 6700 (4895-1552) /uL Lymph # (Auto) 3900 (6232-5597) /uL [place] # (Auto) 1100 H (0-900) /uL Eos # (Auto) 100 (0-450) /uL Baso # (Auto) 100 (0-100) /uL PT 11.6 (10.1-12.7) SECONDS INR 1.0 (0.9-1.3) APTT 31 (26.4-36.2) SECONDS Sodium 137 (137-145) mmol/L Potassium 4.2 (3.4-5.1) mmol/L Chloride 106 (98-107) mmol/L Carbon Dioxide 26 (22-32) mmol/L BUN 13 (9-20) mg/dL Creatinine 0.67 (0.66-1.25) mg/dL Estimated GFR > 60.0 (>60) mL/min BUN/Creatinine Ratio 19.4 (6-22) Glucose 104 H (70-100) mg/dL Calcium 9.1 (8.4-10.2) mg/dL Total Bilirubin 0.2 (0.2-1.3) mg/dL AST 71 H (17-59) IU/L ALT 66 H (<50) IU/L Alkaline Phosphatase 59 (38-126) U/L Total Protein 8.0 (6.3-8.2) g/dL Albumin 4.3 (3.5-5.0) g/dL Globulin 3.7 (1.7-4.1) g/dL Albumin/Globulin Ratio 1.2 (1.0-2.8) Lipase 239 (23-300) U/L Imaging Data CT scan - abdomen/pelvis: Radiologist's Impression: CT scan results faxed. Small new perineum and fat stranding adjacent to the umbilicus. Small periumbilical soft tissue emphysema consistent with postsurgical changes. No evidence of active bleeding. Non emergent/incidental findings in the report. ECG Data Attestation: I personally reviewed and interpreted this ECG as follows: Interpretation: Normal sinus rhythm rate [address] elevation or depression. Normal EKG MDM Narrative Medical decision making narrative: Appropriate for discharge. No acute findings on CT scan. Has scheduled appointment in the morning with his surgeon. Discharge Plan Departure Patient Disposition: Home Clinical Impression: Postoperative abdominal pain Instructions: DI for Postoperative Pain Activity Restrictions/Additional Instructions: No driving or operating machinery tonight. See your surgeon in the morning as scheduled. Return if worse or if any questions or concerns. May continue home pain medication. Prescriptions: No Action trazodone 100 mg tablet 100 mg PO BEDTIME PRN (Reason: sleep) Qty: 30 RF: 0 prazosin 1 mg capsule 1 mg PO QPM Qty: 30 RF: 0 Chantix Starting Month Box 0.5 mg (11)- 1 mg (42) tablets,dose pack See Rx Instructions PO PER PKG DIR Qty: 53 RF: 0 pantoprazole [Protonix] 40 mg tablet,delayed release (DR/EC) 40 mg PO BID Qty: 60 RF: 0 lisinopril 20 mg tablet 20 mg PO DAILY RF: 0 escitalopram oxalate [Lexapro] 20 mg tablet 20 mg PO DAILY RF: 0 hydroxyzine HCl 25 mg tablet 25 mg PO QID PRN (Reason: anxiety) Qty: 30 RF: 0 oxycodone 5 mg tablet 5 mg PO Q6H PRN (Reason: post operative pain) Qty: 20 RF: 0 docusate sodium 100 mg capsule 100 mg PO BID Qty: 20 RF: 0 Referrals: Chip Gonzalez MD [Primary Care Provider] -
[2020-09-27] MEDS: SODIUM CHLORIDE 0.9% 1,000 ML 1000 ML IV (23:42)
[2020-09-27] MEDS: ONDANSETRON 4 MG/2 ML INJ IV (23:44)
[2020-09-27] MEDS: MORPHINE 4 MG/ML INJ IV (23:44)
[2020-09-28 00:05] VITALS: BP 153/88; PULSE 100; RESP 19; O2SAT 97
--- NOTE | 2020-10-04 22:51 | PC.NURSE ---
Late entry: Pt had received 500ml of Normal saline completed on 09/28/2020 at 0005.
== END 2020-09-28 00:05 | disposition home or self-care (01) ==
PROVIDERS: Emergency Provider Emergency Medicine; PCP Family Medicine
DX: G89.18 Other acute postprocedural pain (principal); Z98.890 Other specified postprocedural states; R11.0 Nausea
CPT/HCPCS: 36415; 74177; 80053; 83690; 85025; 85610; 85730; 93005; 93010; 96374; 96375; 99284; J2270; J2405; Q9967

== ENCOUNTER → 2020-10-25 16:49 | Outpatient (CLI) | payer OTHER, MEDICAID, SELFPAY ==
--- NOTE | 2020-10-25 16:53 | DI.RAD.S_ITS ---
PROCEDURE: XR SHOULDER RT MIN 2V INDICATIONS: neck pain and shoulder pain TECHNIQUE: 3 views of the shoulder were acquired. COMPARISON: None. FINDINGS: Bones: No fractures or dislocations, but there is distortion at the AC joint with a blunting of the distal acromial margin, narrowing its craniocaudad dimension, and a copy like morphology of the lateral border of the right clavicle, etiology uncertain.. No suspicious bony lesions. Visualized ribs appear intact. Soft tissues: No suspicious soft tissue calcifications. IMPRESSION: Morphologic distortion of the AC joint which may reflect sequela of prior trauma, chronic degeneration or even some form of prior orthopedic intervention. There is a Rudi like morphology at the lateral aspect of the distal right clavicle. Dictated by: Aron Bolden M.D. on 10/26/2020 at 8:22 Approved by: Aron Bolden M.D. on 10/26/2020 at 8:24
--- NOTE | 2020-10-25 16:53 | DI.RAD.S_ITS ---
PROCEDURE: XR CERVICAL SPINE 2V OR 3V INDICATIONS: neck pain and shoulder pain TECHNIQUE: 3 view(s) of the cervical spine were acquired. COMPARISON: None. FINDINGS: Bones: No fractures or dislocations to the T1 level. The lateral masses of C1 appear intact on the odontoid view. No suspicious bony lesions. There is [id number] C5-6 degenerative disc height reduction, with small anterior and posterior projecting osteophytes from the adjacent endplates. Soft tissues: No prevertebral soft tissue swelling. IMPRESSION: [id number] C5-6 degenerative changes as discussed. Foraminal stenosis may be present at that level, to the degree that nerve root impingement would result. Dictated by: Aron Bolden M.D. on 10/26/2020 at 8:20 Approved by: Aron Bolden M.D. on 10/26/2020 at 8:22
[2020-10-25 17:14] LABS: Add Manual Diff / Slide Review NO; Basophils Absolute Auto 100 /uL (0-100); Basophils Percent Auto 0.8 % (0-2); Eosinophils Absolute Auto 100 /uL (0-450); Eosinophils Percent Auto 1.5 % (2-4); Hematocrit 40.6 % (41-53); Hemoglobin 13.7 g/dL (13.5-17.5); Lymphocytes Absolute Auto 2700 /uL (1100-4500); Mean Corpuscular HGB Conc 33.7 % (30-36); Mean Corpuscular Hemoglobin 31.3 PG (26-34); Monocytes Absolute Auto 700 /uL (0-900); Neutrophils Absolute Auto 3900 /uL (1500-7000); Neutrophils Percent Auto 52.7 % (50-75); Platelet Count 147 X10^3/uL (150-400); Red Blood Cell Count 4.36 X10^6/uL (4.5-5.9); Red Cell Distribution Width 14.8 % (11.6-14.8); White Blood Cell Count 7.4 X10^3/uL (4.5-11.0)
[2020-10-25 17:29] LABS: Alanine Aminotransferase 69 IU/L (<50); Albumin 4.5 g/dL (3.5-5.0); Albumin Globulin Ratio 1.3 (1.0-2.8); Alkaline Phosphatase 66 U/L (38-126); Aspartate Aminotransferase 77 IU/L (17-59); BUN Creatinine Ratio 14.3 (6-22); Bilirubin Total 0.4 mg/dL (0.2-1.3); Blood Urea Nitrogen 10 mg/dL (9-20); Carbon Dioxide 30 mmol/L (22-32); Chloride 101 mmol/L (98-107); Estimated Glomerular Filt Rate > 60.0 mL/min (>60); Globulin 3.5 g/dL (1.7-4.1); Glucose 99 mg/dL (70-100); HEMOLYSIS < 15 (0-50); Potassium 3.9 mmol/L (3.4-5.1); Sodium 136 mmol/L (137-145)
[2020-10-25 18:35] LABS: HIV 1 & 2 Ab/Ag 4th Gen Combo NEGATIVE (NEGATIVE)
[2020-10-26 04:36] LABS: HBsAg Screen Negative (Negative); Hepatitis A Antibody IgM Negative (Negative); Hepatitis B Core Antibody IgM Negative (Negative); Hepatitis C Antibody <0.1 s/co ratio (0.0-0.9)
[2020-10-26 05:40] LABS: RPR Screen Non Reactive (Non Reactive)
== END ==
PROVIDERS: Family Provider Family Medicine; PCP Family Medicine; Referring Provider Family Medicine; Visit Provider Family Medicine
DX: M25.511 Pain in right shoulder (principal); M54.2 Cervicalgia; N50.812 Left testicular pain; I10 Essential (primary) hypertension; R79.89 Other specified abnormal findings of blood chemistry; D64.9 Anemia, unspecified
CPT/HCPCS: 36415; 72040; 73030; 80053; 80074; 85025; 86592; 87389

== ENCOUNTER → 2020-10-31 13:02 | Outpatient (CLI) | payer OTHER, MEDICAID, SELFPAY ==
--- NOTE | 2020-10-31 13:03 | DI.US.S_ITS ---
PROCEDURE: US SCROTUM INDICATIONS: LEFT TESTICLE DISCOMFORT TECHNIQUE: Real-time scanning was performed of the scrotum and testicles, with image documentation. Color and pulse Doppler interrogation was performed of both testicles. COMPARISON: None. FINDINGS: Right: Testicle is normal in size at 2.7 x 3.6 x 5.2 cm, and homogenous in echotexture. Epididymis is normal in overall size and morphology. No significant hydrocele or varicoceles. Overlying scrotal skin is normal in thickness. The small hydrocele that is present contains several thin septations. It measures up to 1.5 x 2.0 x 8.8 cm. Left: Testicle is normal in size at 2.3 x 3.7 x 5.1 cm, and homogeneous in echotexture. Epididymis is normal in overall size and morphology. No hydrocele or varicoceles. Overlying scrotal skin is normal in thickness. There is a anechoic 2 x 2 x 3 mm left testicular cyst. The epididymis is minimally heterogeneous, and contains a 4 x 5 x 5 mm simple cyst. Doppler: Color and pulse Doppler demonstrate normal and symmetric arterial flow in both testicles. IMPRESSION: No acute disease found, a definite source of asymmetric left-sided testicular discomfort is not found. There is no hyperemia involving the testicle or epididymis on the left. An early manifestation of inflammation however conceivably could be present and depending on the clinical status follow-up by dedicated repeat testicular ultrasound may be warranted. Minimally complex right-sided hydrocele as discussed without internal echoes and demonstrating only several thin septations. Dictated by: Aorn Bolden M.D. on 10/31/2020 at 14:47 Approved by: Aron Bolden M.D. on 10/31/2020 at 14:50
== END ==
PROVIDERS: Family Provider Family Medicine; PCP Family Medicine; Referring Provider Family Medicine; Visit Provider Family Medicine
DX: N50.812 Left testicular pain (principal)
CPT/HCPCS: 76870

== ENCOUNTER → 2020-11-05 14:58 | Outpatient (CLI) | payer OTHER, MEDICAID, SELFPAY ==
[2020-11-05 16:39] LABS: Urine N gonorrhoeae NOT DETECTED
[2020-11-05 16:54] LABS: Urine Chlamydia NOT DETECTED
== END ==
PROVIDERS: Family Provider Family Medicine; PCP Family Medicine; Referring Provider Family Medicine; Visit Provider Family Medicine
DX: N50.812 Left testicular pain (principal)
CPT/HCPCS: 87491; 87591

== ENCOUNTER → 2020-11-30 15:00 | Outpatient (CLI) | payer OTHER, MEDICAID, SELFPAY ==
--- NOTE | 2020-11-30 15:03 | DI.RAD.S_ITS ---
PROCEDURE: XR LUMBAR SPINE 2-3V INDICATIONS: Bilateral thigh numbness TECHNIQUE: 2 views of the lumbar spine were acquired. COMPARISON: None. FINDINGS: Bones: 5 [id number] vertebrae are present. Mild dextrocurvature. Trace multilevel retrolisthesis. Multilevel disc degeneration, most notably in moderate at the L5-S1 level. Mild L4-L5 and L5-S1 facet joint arthropathy.. No vertebral body compression fractures. No suspicious bony lesions. Soft tissues: Overlying bowel gas pattern is normal. No suspicious soft tissue calcifications. IMPRESSION: Multilevel spondylosis. Dictated by: Fito POP Interpreted: Enrico Lu MD on 11/30/2020 at 15:41 Approved by: Enrico Lu M.D. on 11/30/2020 at 16:13
== END ==
PROVIDERS: Family Provider Family Medicine; PCP Family Medicine; Referring Provider Family Medicine; Visit Provider Family Medicine
DX: R20.0 Anesthesia of skin (principal); M47.816 Spondylosis without myelopathy or radiculopathy, lumbar region; M47.817 Spondylosis without myelopathy or radiculopathy, lumbosacral region
CPT/HCPCS: 72100

== ENCOUNTER 2020-11-30 15:15 | Outpatient (RCR) | payer OTHER, MEDICAID, SELFPAY ==
--- NOTE | 2020-11-05 16:30 | PT.OIE ---
Current Diagnoses Pain in right shoulder (11/05/20) Pain in right hip (11/05/20) Cervicalgia (11/05/20) Past Medical History (Last Updated 11/05/20 @ 16:10 by Chip Gonzalez MD) Acute depression Anesthesia in both legs Cervicalgia Chronic diarrhea Hypertension Insomnia Left testicular pain Moderate dependence on smoking Obesity Right shoulder pain Schizo affective schizophrenia Umbilical hernia Past Surgical History (Last Reviewed 10/03/20 @ 17:22 by Chip Gonzalez MD) Hx of shoulder surgery Hx of tonsillectomy Visit Care Team Role Provider Type Chip Gonzalez MD Attending Provider Physician Family Provider Primary Care Provider Referring Provider Specialty: Family Practice Address: [address] [place] [address] Email: [email or web address] Physical Therapy Initial Evaluation PT-OP-A Visit Information Start: 11/05/20 14:28 Freq: Status: Active Protocol: Document 11/05/20 14:29 HH (Rec: 11/05/20 15:13 [email or web address]) Out-Patient Physical Therapy Visit Information Visit Information Visit Type Initial Evaluation Visit Start Time 13:00 Visit Stop Time 13:45 Total Visit Minutes 45 Visit Number / Number of [employer] Visits 0 Evaluation Information Evaluation Date 11/05/20 PT-OP-B Current Condition Start: 11/05/20 14:28 Freq: Status: Active Protocol: Document 11/05/20 14:29 HH (Rec: 11/05/20 15:13 [email or web address]) Current Condition History of Current Condition Onset Date many years ago Current Complaints chronic neck pain, low back pain, R shoulder pain, and popping R hip History of Current Condition This is a 40-year-old male with history insomnia, schizoaffective disorder, depression here for chronic neck pain, low back pain and R shoulder pain. Pt stated his pain is at worst at low back > shoulders/ neck > R hip. His LBP started > 10years ago who had MRI recently which showed fusion at his L4-L5 level but he does not want any surgical intervention. Pain is worse with prolonged sitting/ standing and moving around such as walking tends to ease his pain. He currently has difficulty bending over and turning d/t constant LBP pain 7/10. Pt also has c/o with neck pain and often feel stiff and tired during the day. He does c/o occasional tingling and numbness sensation down to his B arms and pinky during the day especially during his sleep. Moving his arms tend to relieve his symptoms. Pt stated he has a cyst removed in his R shoulder before and his ROM and strength have decreased since. Besides, pt has a new onset of popping sensation of R hip and he does not know why but that does not bother him much besides the sensation part. Pt is unemployed d/t his chronic pain and personal issue. He is also seeing psychiatric because of his psychiatric medical condition, along with recent suicidal thoughts. Prior Treatments and Tests x-ray C/S 10/25 [id number] C5-6 degenerative changes as discussed. Foraminal stenosis may be present at that level, to the degree that nerve root impingement would result. x-ray R shoulder 10/25 Morphologic distortion of the AC joint which may reflect sequela of prior trauma, chronic degeneration or even some form of prior orthopedic intervention. There is a Rudi like morphology at the lateral aspect of the distal right clavicl Treatment Goals Patient/Caregiver Goals 1. To reduce his pain 2. to increase his activity level Personal Factors Other Personal Factors That May Effect depression Therapy/Recovery HTN (160s/80s) insomnia obesity schizo affective schizophrenia PT-OP-C Subjective Start: 11/05/20 14:28 Freq: Status: Active Protocol: Document 11/05/20 14:29 (Rec: 11/05/20 15:13 [email or web address]) Patient Questionnaires Lower Extremity Functional Scale LEFS Score 41 LEFS Impairment 40 to 59% Impaired (Score 32- 47) Neck Disability Index NDI Score 30 Neck Disability Index Impairment 60 to 79% Impaired (Score 30- 39) Quick Dash- Upper Extremity Quick Dash UE Score 52.27 Quick Dash UE Impairment 40 to 59% Impaired (Score 40- 59) OP-PT Pain Assessment Location neck and R shoulder Intensity 7 Scale Used Numeric (0 - 10) Description Aching,Pulling,Radiating Frequency Constant Pain Aggravating Factors Position,Changing Position,ADL 's,Activity,Exercise,Lifting Pain Alleviating Factors Inactivity,Lying Supine LBP Pain Location Details lumbar region Intensity 7 Scale Used Numeric (0 - 10) Description Acute,Chronic,Pulling Frequency Constant Pain Aggravating Factors Position,Changing Position,ADL 's,Activity,Standing,Sitting, Bending,Lifting Pain Alleviating Factors Inactivity Other Pain Alleviating Factors walking PT-OP-D Balance Start: 11/05/20 14:28 Freq: Status: Active Protocol: Document 11/05/20 14:29 HH (Rec: 11/05/20 15:13 [email or web address]) Balance Tests Single Limb Standing Single Limb- Right 3 Single Limb- Left 5 PT-OP-E Functional Tests Start: 11/05/20 14:28 Freq: Status: Active Protocol: Document 11/05/20 14:29 HH (Rec: 11/05/20 15:13 [email or web address]) Functional Tests Apley's Scratch Test Action 2- Left T1 Action 2- Right T1 Action 3- Left T8 Action 3- Right T10 PT-OP-F Manual Assessment Start: 11/05/20 14:28 Freq: Status: Active Protocol: Document 11/05/20 14:29 HH (Rec: 11/05/20 15:13 [email or web address]) Manual Assessments Soft Tissue Assessment Soft Tissue Mobility Assessment significant hypertonicity at B thoracolumbar paraspinals and gluteal muscle group to light pressure PT-OP-H Neuro Start: 11/05/20 14:28 Freq: Status: Active Protocol: Document 11/05/20 14:29 (Rec: 11/05/20 15:13 [email or web address]) Sensation Evaluation Gross Sensation Gross Sensation Left LE Impaired,Right LE Impaired Sensation Description Numbness,Tingling Dermatome Impairments L4,L5 Deep Tendon Reflex & Clonus Assessment Deep Tendon Reflex Bilateral Achilles Deep Tendon Reflex 1+ Diminished Bilateral Patellar Deep Tendon Reflex 1+ Diminished PT-OP-K Range of Motion Start: 11/05/20 14:28 Freq: Status: Active Protocol: Document 11/05/20 14:29 HH (Rec: 11/05/20 15:13 [email or web address]) Cervical Spine Range of Motion Cervical Spine Active Degrees Testing Position Sitting Comments end range flexion = pressure at CT junction R lateral flexion= numbness tingling on R pinky finger L lateral flexion= numbness tingling on L pinky finger extension = numbness tingling on bilateral pinky finger Lumbar Spine Range of Motion Lumbar Spine Active Degrees Testing Position Supine Comments toe touch = 18 inches from floor, no hip hinge pattern noted, grower sign noted for recovery. R lateral flexion= 24 inches L lateral flexion= 23 inches trunk extension = up to neutral pain for both flexion and extension patterns. Shoulder Goniometric Range of Motion Shoulder Right Active Shoulder ROM WFL No Testing Position Standing Flexion 155 Extension 36 Abduction 143 Comments painful at end range for flexion and abd Left Active Shoulder ROM WFL Yes Testing Position Standing Flexion 160 Extension 35 Abduction 156 Shoulder ROM Limitations Shoulder ROM Limitations Soft Tissue Tightness,Muscle Weakness,Pain Hip Goniometric Range of Motion Hip Right Active Straight Leg Raise 40 Internal Rotation 20 External Rotation 50 Comments PSLR =44 increased pain at L/S Left Active Hip ROM WFL Yes Straight Leg Raise 47 Internal Rotation 15 External Rotation 55 Comments PSLR =56 slight pain at L/S Hip ROM Limitations Hip ROM Limitations Soft Tissue Tightness,Muscle Tone,Pain PT-OP-L Special Tests Start: 11/05/20 14:28 Freq: Status: Active Protocol: Document 11/05/20 14:29 (Rec: 11/05/20 15:13 [email or web address]) Special Tests Cervical Spine Special Tests Spurling's Test Test Results +ve B Lumbar Spine Special Tests Prone Knee Flexion Test Results +ve B Comments significant quad tightness Straight Leg Raise Test Results +Ve R >L Comments R= 40 degrees, L = 47 degrees Slump Test Results +ve B Comments LBP with extended knee and DF PT-OP-M Strength Start: 11/05/20 14:28 Freq: Status: Active Protocol: Document 11/05/20 14:29 (Rec: 11/05/20 15:13 [email or web address]) Shoulder Strength Shoulder Manual Muscle Testing Right Flexion 4- Good- Extension 4 Good Abduction (C5) 4- Good- Adduction 4+ Good+ External Rotation 4- Good- Internal Rotation 4 Good Left Flexion 4- Good- Extension 4 Good Abduction (C5) 4- Good- Adduction 4+ Good+ External Rotation 4- Good- Internal Rotation 4 Good Hip Strength Hip Manual Muscle Testing Right Flexion (L2) 3+ Fair+ Extension (S1) 4- Good- Abduction 4- Good- Adduction 4- Good- Left Flexion (L2) 3+ Fair+ Extension (S1) 4- Good- Abduction 4- Good- Adduction 4- Good- Knee Strength Knee Manual Muscle Testing Right Flexion (S2) 4- Good- Extension (L3) 4- Good- Left Flexion (S2) 4- Good- Extension (L3) 4- Good- PT-OP-T Assessment and Plan Start: 11/05/20 14:28 Freq: Status: Active Protocol: Document 11/05/20 14:29 (Rec: 11/05/20 15:13 [email or web address]) Physical Therapy Assessment Rehab Potential Rehabilitation Potential Fair Evaluation Complexity Number of Personal Factors/Comorbidities 3 or More Number of Body Systems Impaired 4 or More Clinical Presentation at Evaluation Stable Impairments Impairments Activity Tolerance,Balance, Functional Activities, Functional Mobility,Gait,Pain, Posture,ROM,Soft Tissue Mobility Goals neurological symptoms Impairment tingling numbness and radiating pain Short Term Goal (STG) pt will have tingling / numbness to his hands no more than 4 days /week STG Duration 5 weeks Longterm Goal (LTG) pt will have tingling / numbness to his hands no more than 2 days /week, and will be -ve for slump and SLR test. LTG Duration 10 weeks pain Impairment pt stated he has pain 7/10 grossly Short Term Goal (STG) pt will have pain no more than 5 /10 grossly STG Duration 5 week Personal Service Representative Goal (LTG) pt will have pain no more than 4/10 grossly so he will increase his activity tolerance such as 3 times/week for a mile in general. LTG Duration 10 weeks NDI Impairment pt scores 30 on NDI Personal Service Representative Goal (LTG) pt will score < 20 on NDI to improve his neck discomfort and quality of sleep LTG Duration 10 weeks quick dash Impairment pt scores 52.27on quick dash Short Term Goal (STG) pt will score < 45 on quickdash to improve his R shoulder pain for functional activities. STG Duration 5 weeks Personal Service Representative Goal (LTG) pt will score <40 on quickdash so patient can wash his back and able to sleep without neurological symptoms LTG Duration 10 weeks LEFS Impairment pt scores 41/80 on LEFS Short Term Goal (STG) pt will score >50 on LEFS to improve his overall quality of life Personal Service Representative Goal (LTG) pt will score >55 on LEFS to improve his B LE strength and mobility, and overall quality of life with decreased pain LTG Duration 10 weeks Assessment Summary Assessment This is a 40-year-old male with history insomnia, schizo- affective disorder, depression here for chronic neck pain, low back pain and R shoulder pain. Pt stated his pain is at worst at low back >shoulders/ neck > R hip. (see above for imaging results) Upon assessment, pt presents radicularpathy symptoms for both cervical and lumbar region. (L4-L5) He also has ROM loss on R shoulder and strength loss on both shoulders. ; He presents with very limited hip mobility with significant tightness at bilateral posterior chain musculature and sciatic nerve tension. (SLR = 40 degrees). In addition, d/t pt's psychiatric medical condition and other cormobidities, I expect this pt's rehab progress will be lengthy and possibly complicated but he will surely benefit from skilled therapy to improve his hip mobility, trunk and cervical stability, and posterior chain neural sensitivity to reduce his overall chronic pain. Physical Therapy Plan Frequency and Duration Frequency of Treatment 1x/Week Duration of Treatment 10 weeks Plan of Care Start Date 11/05/20 Plan of Care End Date 01/19/21 Therapeutic Interventions Therapeutic Interventions Aquatic Therapy,Balance Training,Gait Training,Home Exercise Program,Joint Mobilizations,Manual Therapy, Neuromuscular Re-education, Patient/Caregiver Education, Self-Care/Home Management,Soft Tissue Mobilization,Taping, Therapeutic Activities, Therapeutic Exercises Modalities Cold Pack/Ice Massage,Electric Stimulation,Hot Packs, Infrared Therapy,Iontophoresis ,Ultrasound Next Visit Focus/Plan Next Note Type Treatment Note Next Visit Plan HS stretch/ sciatic nerve glide lumbar flexion stretch open book quad stretch/ hip flexor stretch piriformis stretch bike
--- NOTE | 2020-11-12 18:02 | PT.OTN ---
Current Diagnoses Pain in right shoulder (11/12/20) Pain in right hip (11/12/20) Cervicalgia (11/12/20) Physical Therapy Treatment Note PT-OP-A Visit Information Start: 11/05/20 14:28 Freq: Status: Active Protocol: Document 11/12/20 17:27 MA (Rec: 11/12/20 18:02 MA [email or web address]) Out-Patient Physical Therapy Visit Information Visit Information Visit Type Treatment Note Visit Start Time 14:35 Visit Stop Time 15:25 Total Visit Minutes 50 Visit Number 2/9 Number of OILER BANDER Visits 1 PT-OP-B Current Condition Start: 11/05/20 14:28 Freq: Status: Active Protocol: Document 11/05/20 14:29 HH (Rec: 11/05/20 15:13 HH [email or web address]) Current Condition History of Current Condition Onset Date many years ago Current Complaints chronic neck pain, low back pain, R shoulder pain, and popping R hip History of Current Condition This is a 40-year-old male with history insomnia, schizoaffective disorder, depression here for chronic neck pain, low back pain and R shoulder pain. Pt stated his pain is at worst at low back > shoulders/ neck > R hip. His LBP started > 10years ago who had MRI recently which showed fusion at his L4-L5 level but he does not want any surgical intervention. Pain is worse with prolonged sitting/ standing and moving around such as walking tends to ease his pain. He currently has difficulty bending over and turning d/t constant LBP pain /10. Pt also has c/o with neck pain and often feel stiff and tired during the day. He does c/o occasional tingling and numbness sensation down to his B arms and pinky during the day especially during his sleep. Moving his arms tend to relieve his symptoms. Pt stated he has a cyst removed in his R shoulder before and his ROM and strength have decreased since. Besides, pt has a new onset of popping sensation of R hip and he does not know why but that does not bother him much besides the sensation part. Pt is unemployed d/t his chronic pain and personal issue. He is also seeing psychiatric because of his psychiatric medical condition, along with recent suicidal thoughts. Prior Treatments and Tests x-ray C/S 10/25 [id number] C5-6 degenerative changes as discussed. Foraminal stenosis may be present at that level, to the degree that nerve root impingement would result. x-ray R shoulder 10/25 Morphologic distortion of the AC joint which may reflect sequela of prior trauma, chronic degeneration or even some form of prior orthopedic intervention. There is a Rudi like morphology at the lateral aspect of the distal right clavicl Treatment Goals Patient/Caregiver Goals 1. To reduce his pain 2. to increase his activity level Personal Factors Other Personal Factors That May Effect depression Therapy/Recovery HTN (160s/80s) insomnia obesity schizo affective schizophrenia PT-OP-C Subjective Start: 11/05/20 14:28 Freq: Status: Active Protocol: Document 11/12/20 17:27 MA (Rec: 11/12/20 18:02 MA [email or web address]) OP-PT Subjective Patient Comments Patient Comments Pt states his back and shds are hurting him today. He wants to find some stretches and exercises to do at home. He arrives with partner today who requests to join session. PT-OP-D Balance Start: 11/05/20 14:28 Freq: Status: Active Protocol: Document 11/05/20 14:29 HH (Rec: 11/05/20 15:13 HH [email or web address]) Balance Tests Single Limb Standing Single Limb- Right 3 Single Limb- Left 5 PT-OP-E Functional Tests Start: 11/05/20 14:28 Freq: Status: Active Protocol: Document 11/05/20 14:29 HH (Rec: 11/05/20 15:13 HH [email or web address]) Functional Tests Apley's Scratch Test Action 2- Left T1 Action 2- Right T1 Action 3- Left T8 Action 3- Right T10 PT-OP-F Manual Assessment Start: 11/05/20 14:28 Freq: Status: Active Protocol: Document 11/05/20 14:29 HH (Rec: 11/05/20 15:13 HH [email or web address]) Manual Assessments Soft Tissue Assessment Soft Tissue Mobility Assessment significant hypertonicity at B thoracolumbar paraspinals and gluteal muscle group to light pressure PT-OP-H Neuro Start: 11/05/20 14:28 Freq: Status: Active Protocol: Document 11/05/20 14:29 HH (Rec: 11/05/20 15:13 HH [email or web address]) Sensation Evaluation Gross Sensation Gross Sensation Left LE Impaired,Right LE Impaired Sensation Description Numbness,Tingling Dermatome Impairments L4,L5 Deep Tendon Reflex & Clonus Assessment Deep Tendon Reflex Bilateral Achilles Deep Tendon Reflex 1+ Diminished Bilateral Patellar Deep Tendon Reflex 1+ Diminished PT-OP-K Range of Motion Start: 11/05/20 14:28 Freq: Status: Active Protocol: Document 11/05/20 14:29 (Rec: 11/05/20 15:13 [email or web address]) Cervical Spine Range of Motion Cervical Spine Active Degrees Testing Position Sitting Comments end range flexion = pressure at CT junction R lateral flexion= numbness tingling on R pinky finger L lateral flexion= numbness tingling on L pinky finger extension = numbness tingling on bilateral pinky finger Lumbar Spine Range of Motion Lumbar Spine Active Degrees Testing Position Supine Comments toe touch = 18 inches from floor, no hip hinge pattern noted, grower sign noted for recovery. R lateral flexion= 24 inches L lateral flexion= 23 inches trunk extension = up to neutral pain for both flexion and extension patterns. Shoulder Goniometric Range of Motion Shoulder Right Active Shoulder ROM WFL No Testing Position Standing Flexion 155 Extension 36 Abduction 143 Comments painful at end range for flexion and abd Left Active Shoulder ROM WFL Yes Testing Position Standing Flexion 160 Extension 35 Abduction 156 Shoulder ROM Limitations Shoulder ROM Limitations Soft Tissue Tightness,Muscle Weakness,Pain Hip Goniometric Range of Motion Hip Right Active Straight Leg Raise 40 Internal Rotation 20 External Rotation 50 Comments PSLR =44 increased pain at L/S Left Active Hip ROM WFL Yes Straight Leg Raise 47 Internal Rotation 15 External Rotation 55 Comments PSLR =56 slight pain at L/S Hip ROM Limitations Hip ROM Limitations Soft Tissue Tightness,Muscle Tone,Pain PT-OP-L Special Tests Start: 11/05/20 14:28 Freq: Status: Active Protocol: Document 11/05/20 14:29 (Rec: 11/05/20 15:13 [email or web address]) Special Tests Cervical Spine Special Tests Spurling's Test Test Results +ve B Lumbar Spine Special Tests Prone Knee Flexion Test Results +ve B Comments significant quad tightness Straight Leg Raise Test Results +Ve R >L Comments R= 40 degrees, L = 47 degrees Slump Test Results +ve B Comments LBP with extended knee and DF PT-OP-M Strength Start: 11/05/20 14:28 Freq: Status: Active Protocol: Document 11/05/20 14:29 HH (Rec: 11/05/20 15:13 HH [email or web address]) Shoulder Strength Shoulder Manual Muscle Testing Right Flexion 4- Good- Extension 4 Good Abduction (C5) 4- Good- Adduction 4+ Good+ External Rotation 4- Good- Internal Rotation 4 Good Left Flexion 4- Good- Extension 4 Good Abduction (C5) 4- Good- Adduction 4+ Good+ External Rotation 4- Good- Internal Rotation 4 Good Hip Strength Hip Manual Muscle Testing Right Flexion (L2) 3+ Fair+ Extension (S1) 4- Good- Abduction 4- Good- Adduction 4- Good- Left Flexion (L2) 3+ Fair+ Extension (S1) 4- Good- Abduction 4- Good- Adduction 4- Good- Knee Strength Knee Manual Muscle Testing Right Flexion (S2) 4- Good- Extension (L3) 4- Good- Left Flexion (S2) 4- Good- Extension (L3) 4- Good- PT-OP-Q Treatments Start: 11/05/20 14:28 Freq: Status: Active Protocol: Document 11/12/20 17:27 MA (Rec: 11/12/20 18:02 MA [email or web address]) Therapeutic Exercises Supine Exercises LTR Side bilateral Reps/Minutes 10 sec hold Comments cues for TA activation to bring knees back to neutral Piriformis Stretch Side bilateral Reps/Minutes x30 sec Comments some LBP during stretch HS stretch Supine Exercise Name HS stretch with belt Side bilateral Reps/Minutes x30 sec Comments pt had nerve pain on R during stretch Pelvic Tucks Supine Exercise Name pelvic tilts Side bilateral Reps/Minutes x8 Comments Pt needed cues for TA activation; had slight increase in LBP Sidelying Exercises Open Book Side bilateral Reps/Minutes x8 Comments pt states he just feels pec stretch not much through thoracic spine Sitting Exercises HS stretch Comments Single leg stretched out, leaning forward from hips avoiding forward flexio Piriformis Stretch Sitting Exercise Name Piriformis stretch Side bilateral Sciatic nerve glide Side bilateral Equipment Used belt for LE assistance Reps/Minutes x10 Self-Care/Home Management Treatment Education Patient Education Home Exercise Program Other Education Piriformis stretch seated or supine- pt preference, HS stretch supine with opposite knee bent, sciatic nerve glide seated in chair PT-OP-R Modalities Start: 11/05/20 14:28 Freq: Status: Active Protocol: Document 11/12/20 17:27 MA (Rec: 11/12/20 18:02 MA [email or web address]) Electric Stimulation Electric Stimulation IFC Body Location low back Duration (Minutes) 15 Intensity 25 Target/Sweep Sweep High/Low Low Combined With Heat/Cold Hot Pack PT-OP-T Assessment and Plan Start: 11/05/20 14:28 Freq: Status: Active Protocol: Document 11/12/20 17:27 MA (Rec: 11/12/20 18:02 MA [email or web address]) Physical Therapy Assessment Goals neurological symptoms Impairment tingling numbness and radiating pain Short Term Goal (STG) pt will have tingling / numbness to his hands no more than 4 days /week STG Duration 5 weeks Detention Goal (LTG) pt will have tingling / numbness to his hands no more than 2 days /week, and will be -ve for slump and SLR test. LTG Duration 10 weeks pain Impairment pt stated he has pain 7/10 grossly Short Term Goal (STG) pt will have pain no more than 5 /10 grossly STG Duration 5 week Core Dropper Goal (LTG) pt will have pain no more than 4/10 grossly so he will increase his activity tolerance such as 3 times/week for a mile in general. LTG Duration 10 weeks NDI Impairment pt scores 30 on NDI Core Dropper Goal (LTG) pt will score < 20 on NDI to improve his neck discomfort and quality of sleep LTG Duration 10 weeks quick dash Impairment pt scores 52.27on quick dash Short Term Goal (STG) pt will score < 45 on quickdash to improve his R shoulder pain for functional activities. STG Duration 5 weeks Detention Goal (LTG) pt will score <40 on quickdash so patient can wash his back and able to sleep without neurological symptoms LTG Duration 10 weeks LEFS Impairment pt scores 41/80 on LEFS Short Term Goal (STG) pt will score >50 on LEFS to improve his overall quality of life Core Dropper Goal (LTG) pt will score >55 on LEFS to improve his B LE strength and mobility, and overall quality of life with decreased pain LTG Duration 10 weeks Assessment Summary Assessment Pt had increased nerve pain with supine HS stretch on R that improved when LLE was bent. He had no pain during LTR and stated he only felt a pec stretch during open book exercise. During pelvic tilts, pt was able to complete 5 before having increased back pain and needs max cues to activate TA. He needed to use a belt during sciatic nerve glide to avoid LBP. Pt has a hard time relaxing and staying focused during tx session. During ther ex, pt tends to perform jerky, quick movements and needs reminders to slow down and focus on what he is doing. Pt is a highly complex case that will need to be broken down to different parts of body during each treatment session. He likes to understand each movement and would like his partner to be able to come to sessions so they can work out together at home. Physical Therapy Plan Frequency and Duration Frequency of Treatment 1x/Week Duration of Treatment 10 weeks Plan of Care Start Date 11/05/20 Plan of Care End Date 01/19/21 Therapeutic Interventions Therapeutic Interventions Aquatic Therapy,Balance Training,Gait Training,Home Exercise Program,Joint Mobilizations,Manual Therapy, Neuromuscular Re-education, Patient/Caregiver Education, Self-Care/Home Management,Soft Tissue Mobilization,Taping, Therapeutic Activities, Therapeutic Exercises Modalities Cold Pack/Ice Massage,Electric Stimulation,Hot Packs, Infrared Therapy,Iontophoresis ,Ultrasound Next Visit Focus/Plan Next Note Type Treatment Note Next Visit Plan Assess HEP exercises. Add LTR & open book to HEP if pt did not have increased pain after today's session. Assess how IFC with hot pack felt at end of tx session. Work on UE nerve glides and add a few ab exercises to HEP. STM to paraspinals and UT
--- NOTE | 2020-11-30 16:33 | PT.OTN ---
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 Pt stated his pain is at worst at low back > shoulders/ neck > R hip. His LBP started > 10years ago who had MRI recently which showed fusion at his L4-L5 level but he does not want any surgical intervention. Pain is worse with prolonged sitting/ standing and moving around such as walking tends to ease his pain. He currently has difficulty bending over and turning d/t constant LBP pain /10. Pt also has c/o with neck pain and often feel stiff and tired during the day. He does c/o occasional tingling and numbness sensation down to his B arms and pinky during the day especially during his sleep. Moving his arms tend to relieve his symptoms. Pt stated he has a cyst removed in his R shoulder before and his ROM and strength have decreased since. Besides, pt has a new onset of popping sensation of R hip and he does not know why but that does not bother him much besides the sensation part. Pt is unemployed d/t his chronic pain and personal issue. He is also seeing psychiatric because of his psychiatric medical condition, along with recent suicidal thoughts. Prior Treatments and Tests x-ray C/S 10/25 [id number] C5-6 degenerative changes as discussed. Foraminal stenosis may be present at that level, to the degree that nerve root impingement would result. x-ray R shoulder 10/25 Morphologic distortion of the AC joint which may reflect sequela of prior trauma, chronic degeneration or even some form of prior orthopedic intervention. There is a Rudi like morphology at the lateral aspect of the distal right clavicl Treatment Goals Patient/Caregiver Goals 1. To reduce his pain 2. to increase his activity level Personal Factors Other Personal Factors That May Effect depression Therapy/Recovery HTN (160s/80s) insomnia obesity schizo affective schizophrenia PT-OP-C Subjective Start: 11/05/20 14:28 Freq: Status: Active Protocol: Document 11/30/20 16:17 MA (Rec: 11/30/20 16:33 MA [email or web address]) OP-PT Subjective Patient Comments Patient Comments Pt's lumbar and cervical spine are still bothering him. He did not get much relief from the LE nerve floss but is doing his HEP. The nerve pain in his arm is occassional and goes down to his elbow PT-OP-D Balance Start: 11/05/20 14:28 Freq: Status: Active Protocol: Document 11/05/20 14:29 HH (Rec: 11/05/20 15:13 HH [email or web address]) Balance Tests Single Limb Standing Single Limb- Right 3 Single Limb- Left 5 PT-OP-E Functional Tests Start: 11/05/20 14:28 Freq: Status: Active Protocol: Document 11/05/20 14:29 HH (Rec: 11/05/20 15:13 HH [email or web address]) Functional Tests Apley's Scratch Test Action 2- Left T1 Action 2- Right T1 Action 3- Left T8 Action 3- Right T10 PT-OP-F Manual Assessment Start: 11/05/20 14:28 Freq: Status: Active Protocol: Document 11/05/20 14:29 HH (Rec: 11/05/20 15:13 HH [email or web address]) Manual Assessments Soft Tissue Assessment Soft Tissue Mobility Assessment significant hypertonicity at B thoracolumbar paraspinals and gluteal muscle group to light pressure PT-OP-H Neuro Start: 11/05/20 14:28 Freq: Status: Active Protocol: Document 11/05/20 14:29 HH (Rec: 11/05/20 15:13 HH [email or web address]) Sensation Evaluation Gross Sensation Gross Sensation Left LE Impaired,Right LE Impaired Sensation Description Numbness,Tingling Dermatome Impairments L4,L5 Deep Tendon Reflex & Clonus Assessment Deep Tendon Reflex Bilateral Achilles Deep Tendon Reflex 1+ Diminished Bilateral Patellar Deep Tendon Reflex 1+ Diminished PT-OP-K Range of Motion Start: 11/05/20 14:28 Freq: Status: Active Protocol: Document 11/05/20 14:29 (Rec: 11/05/20 15:13 [email or web address]) Cervical Spine Range of Motion Cervical Spine Active Degrees Testing Position Sitting Comments end range flexion = pressure at CT junction R lateral flexion= numbness tingling on R pinky finger L lateral flexion= numbness tingling on L pinky finger extension = numbness tingling on bilateral pinky finger Lumbar Spine Range of Motion Lumbar Spine Active Degrees Testing Position Supine Comments toe touch = 18 inches from floor, no hip hinge pattern noted, grower sign noted for recovery. R lateral flexion= 24 inches L lateral flexion= 23 inches trunk extension = up to neutral pain for both flexion and extension patterns. Shoulder Goniometric Range of Motion Shoulder Right Active Shoulder ROM WFL No Testing Position Standing Flexion 155 Extension 36 Abduction 143 Comments painful at end range for flexion and abd Left Active Shoulder ROM WFL Yes Testing Position Standing Flexion 160 Extension 35 Abduction 156 Shoulder ROM Limitations Shoulder ROM Limitations Soft Tissue Tightness,Muscle Weakness,Pain Hip Goniometric Range of Motion Hip Right Active Straight Leg Raise 40 Internal Rotation 20 External Rotation 50 Comments PSLR =44 increased pain at L/S Left Active Hip ROM WFL Yes Straight Leg Raise 47 Internal Rotation 15 External Rotation 55 Comments PSLR =56 slight pain at L/S Hip ROM Limitations Hip ROM Limitations Soft Tissue Tightness,Muscle Tone,Pain PT-OP-L Special Tests Start: 11/05/20 14:28 Freq: Status: Active Protocol: Document 11/05/20 14:29 (Rec: 11/05/20 15:13 [email or web address]) Special Tests Cervical Spine Special Tests Spurling's Test Test Results +ve B Lumbar Spine Special Tests Prone Knee Flexion Test Results +ve B Comments significant quad tightness Straight Leg Raise Test Results +Ve R >L Comments R= 40 degrees, L = 47 degrees Slump Test Results +ve B Comments LBP with extended knee and DF PT-OP-M Strength Start: 11/05/20 14:28 Freq: Status: Active Protocol: Document 11/05/20 14:29 HH (Rec: 11/05/20 15:13 HH [email or web address]) Shoulder Strength Shoulder Manual Muscle Testing Right Flexion 4- Good- Extension 4 Good Abduction (C5) 4- Good- Adduction 4+ Good+ External Rotation 4- Good- Internal Rotation 4 Good Left Flexion 4- Good- Extension 4 Good Abduction (C5) 4- Good- Adduction 4+ Good+ External Rotation 4- Good- Internal Rotation 4 Good Hip Strength Hip Manual Muscle Testing Right Flexion (L2) 3+ Fair+ Extension (S1) 4- Good- Abduction 4- Good- Adduction 4- Good- Left Flexion (L2) 3+ Fair+ Extension (S1) 4- Good- Abduction 4- Good- Adduction 4- Good- Knee Strength Knee Manual Muscle Testing Right Flexion (S2) 4- Good- Extension (L3) 4- Good- Left Flexion (S2) 4- Good- Extension (L3) 4- Good- PT-OP-Q Treatments Start: 11/05/20 14:28 Freq: Status: Active Protocol: Document 11/30/20 16:17 MA (Rec: 11/30/20 16:33 MA [email or web address]) Therapeutic Exercises Supine Exercises Pec Stretch Supine Exercise Name 90/90 abd/flex Side bilateral Reps/Minutes 1' LTR Side bilateral Reps/Minutes 10 sec hold Comments cues for TA activation to bring knees back to neutral Sidelying Exercises Open Book Side bilateral Reps/Minutes x8 Sitting Exercises HS stretch Sitting Exercise Name long sitting with ankle pumps Piriformis Stretch Sitting Exercise Name Piriformis stretch Side bilateral Comments had some nerve pain down right leg after stretch Standing Exercises Rows Standing Exercise Name shd retraction Side bilateral Equipment Used TB#2 Reps/Minutes x10 ER Standing Exercise Name Shd ER Side bilateral Equipment Used TB#2 Reps/Minutes x10 Shd Ext Standing Exercise Name Shoulder Extension Side bilateral Equipment Used TB #2 Reps/Minutes x10 Manual Therapy Treatment Soft Tissue Mobilization Shoulder Body Location [place], R RTC Mobilization Type Rolling,Sustained Pressure, Trigger Point Release Intensity/Depth Moderate Body Position Supine Self-Care/Home Management Treatment Education Patient Education Home Exercise Program Other Education Shd ext, ER, rows, open book and lower trunk rotation all added to HEP. PT-OP-R Modalities Start: 11/05/20 14:28 Freq: Status: Active Protocol: Document 11/30/20 16:17 MA (Rec: 11/30/20 16:33 MA [email or web address]) Electric Stimulation Electric Stimulation IFC Body Location low back Duration (Minutes) 12 Intensity 29 Target/Sweep Sweep High/Low High Combined With Heat/Cold Hot Pack Comments Hooklying PT-OP-T Assessment and Plan Start: 11/05/20 14:28 Freq: Status: Active Protocol: Document 11/30/20 16:17 MA (Rec: 11/30/20 16:33 MA [email or web address]) Physical Therapy Assessment Goals neurological symptoms Impairment tingling numbness and radiating pain Short Term Goal (STG) pt will have tingling / numbness to his hands no more than 4 days /week STG Duration 5 weeks Usp Goal (LTG) pt will have tingling / numbness to his hands no more than 2 days /week, and will be -ve for slump and SLR test. LTG Duration 10 weeks pain Impairment pt stated he has pain 7/10 grossly Short Term Goal (STG) pt will have pain no more than 5 /10 grossly STG Duration 5 week Usp Goal (LTG) pt will have pain no more than 4/10 grossly so he will increase his activity tolerance such as 3 times/week for a mile in general. LTG Duration 10 weeks NDI Impairment pt scores 30 on NDI Coagulating Bath Operator Goal (LTG) pt will score < 20 on NDI to improve his neck discomfort and quality of sleep LTG Duration 10 weeks quick dash Impairment pt scores 52.27on quick dash Short Term Goal (STG) pt will score < 45 on quickdash to improve his R shoulder pain for functional activities. STG Duration 5 weeks Coagulating Bath Operator Goal (LTG) pt will score <40 on quickdash so patient can wash his back and able to sleep without neurological symptoms LTG Duration 10 weeks LEFS Impairment pt scores 41/80 on LEFS Short Term Goal (STG) pt will score >50 on LEFS to improve his overall quality of life Usp Goal (LTG) pt will score >55 on LEFS to improve his B LE strength and mobility, and overall quality of life with decreased pain LTG Duration 10 weeks Assessment Summary Assessment Added UE work during today's session for improving posture and anterior roll of R humorus . Shd ext, ER, and rows added to HEP along with LTR and open book exercise for thoracic spine. Ended session with IFC per pt's request. Pt needs frequent cues to use core mms during exercises to avoid increasing low back pain . He likes every exercise and stretch to be throughly explained to him and his partner. Pt is able to self correct posture with verbal cues during exercises and only had increasing nerve pain down RLE during seated piriformis stretch today. Physical Therapy Plan Frequency and Duration Frequency of Treatment 1x/Week Duration of Treatment 10 weeks Plan of Care Start Date 11/05/20 Plan of Care End Date 01/19/21 Therapeutic Interventions Therapeutic Interventions Aquatic Therapy,Balance Training,Gait Training,Home Exercise Program,Joint Mobilizations,Manual Therapy, Neuromuscular Re-education, Patient/Caregiver Education, Self-Care/Home Management,Soft Tissue Mobilization,Taping, Therapeutic Activities, Therapeutic Exercises Modalities Cold Pack/Ice Massage,Electric Stimulation,Hot Packs, Infrared Therapy,Iontophoresis ,Ultrasound Next Visit Focus/Plan Next Note Type Treatment Note Next Visit Plan Assess HEP exercises. Add LTR & open book to HEP if pt did not have increased pain after today's session. Assess how IFC with hot pack felt at end of tx session. Work on UE nerve glides and add a few ab exercises to HEP. STM to paraspinals and UT
--- NOTE | 2020-12-05 14:52 | PT-OP ANOTE ---
Called pt, and left voicemail about missed appt. Left option for Thursday at 13:45 to reschedule
--- NOTE | 2020-12-24 11:31 | PT.OPDS ---
Current Diagnoses Pain in right shoulder (11/30/20) Pain in right hip (11/30/20) Cervicalgia (11/30/20) Visit Care Team Role Provider Type Chip Gonzalez MD Attending Provider Physician Family Provider Primary Care Provider Referring Provider Specialty: Family Practice Address: [address] [place] [address] Email: [email or web address] Visit Number Visit Number 12/18 Discharge Summary PT-OP-T Assessment and Plan Start: 11/05/20 14:28 Freq: Status: Active Protocol: Document 12/24/20 11:30 HH (Rec: 12/24/20 11:31 HH [id number]) Physical Therapy Plan Discharge Physical Therapy Discharge Reasons Patient Request Discharge Comments Pt called in to cancel rest of his appointments and requested to be DC d/t ongoing intoxication and suicidal idealtion.
== END 2021-02-15 11:13 | disposition home or self-care (01) ==
LOC: PHYS 15:15
PROVIDERS: Family Provider Family Medicine; PCP Family Medicine; Referring Provider Family Medicine; Visit Provider Family Medicine
DX: M54.2 Cervicalgia (principal); M25.511 Pain in right shoulder; M25.551 Pain in right hip
CPT/HCPCS: 97032; 97110; 97140; 97163; 97535

== ENCOUNTER 2020-12-06 13:21 | Emergency (ER) | payer OTHER, MEDICAID, SELFPAY ==
[2020-12-06 13:29] VITALS: BP 138/97; PULSE 97; RESP 12; TEMP 36.6; O2SAT 95; BMI 39.1
--- NOTE | 2020-12-06 14:03 | ED.PSYCH ---
HPI - Psych <Roderick Ward, DO - Last Filed: 12/07/20 18:29> General Chief Complaint: Psychiatric Symptoms Stated Complaint: Suicidal ideation (with a plan), intoxication Time Seen by Provider: 12/06/20 13:22 Source: patient and other (Boyfriend) Mode of arrival: Wheelchair Limitations: other (Intoxication) History of Present Illness HPI Narrative: Patient is a 40-year-old male who came to the emergency department with his boyfriend and also a counselor that he sees for was reported to be suicidal ideation. Patient was only minimally cooperative most likely secondary to his intoxication although he did express to me ?I want to kill myself? he would not explain this more than that. He is stated multiple times to multiple individuals to include nursing staff here that he was suicidal and that he had a plan although he would not tell with this plan was. He has been drinking for the past couple days after he reportedly found out about a mother of a friend that has recently his boyfriend is in the room with him he states that this has happened in the past and they have been dealing with this for the past couple months. Patient's boyfriend states that his last drink was approximately 2 hours ago. Related Data Home Medications Medication Instructions Recorded Confirmed escitalopram oxalate 20 mg tablet 20 mg PO QAM 08/31/20 12/07/20 risperidone 2 mg tablet 4 mg PO BEDTIME tab 10/03/20 12/07/20 alprazolam 0.25 mg PO DAILY PRN 12/07/20 12/07/20 gabapentin 300 mg PO TID 12/07/20 12/07/20 lisinopril 20 mg PO QAM 12/07/20 12/07/20 naltrexone 50 mg PO QAM 12/07/20 12/07/20 Previous Rx's Medication Instructions Recorded zolpidem 10 mg tablet 10 mg PO BEDTIME PRN #30 tab 11/09/20 emtricitabine 200 mg-tenofovir 1 tab PO DAILY #90 tab 11/28/20 disoproxil fumarate 300 mg tablet loperamide 2 mg tablet 2 mg PO Q4H PRN #90 tab 11/28/20 methocarbamol 750 mg tablet 750 mg PO Q8H PRN #60 tab 11/28/20 prazosin 1 mg capsule 1 mg PO QPM #30 cap 11/28/20 varenicline 0.5 mg (11)-1 mg (42) See Rx Instructions PO PER PKG DIR 11/30/20 tablets in a dose pack #53 ea Allergies Allergy/AdvReac Type Severity Reaction Status Date / Time tramadol AdvReac Severe Seizure Verified 12/06/20 13:40 hydrocodone AdvReac Intermediate ITCHING Verified 12/06/20 13:40 Review of Systems <Roderick Ward DO - Last Filed: 12/07/20 18:29> Review of Systems Narrative: Somewhat limited secondary to his intoxication Cardiovascular Cardiovascular: Denies chest pain and Denies dyspnea Respiratory Respiratory: Denies dyspnea Gastrointestinal Gastrointestinal: Denies abdominal pain Psychiatric Psychiatric: Reports suicidal ideation Patient History <Roderick Ward DO - Last Filed: 12/07/20 18:29> Medical History Acute depression Anesthesia in both legs Cervicalgia Chronic diarrhea Hypertension Insomnia Left testicular pain Moderate dependence on smoking Obesity Right shoulder pain Schizo affective schizophrenia Spondylosis of cervical spine Surgical History (Updated 11/05/20 @ 16:49 by Chip Gonzalez MD) Hx of shoulder surgery Hx of tonsillectomy Umbilical hernia Family History Father Hypertension Cancer Brother Hypertension Gallstones Diabetes mellitus Mother Diabetes mellitus Sister Diabetes mellitus Grandmother Diabetes mellitus Grandfather Stroke Social History marital status: unknown household members: significant other Smoking Status: Former smoker alcohol intake: former substance use type: does not use Smoking Status: Former smoker alcohol intake frequency: other Substance Use Type: marijuana Exam <Roderick Ward DO - Last Filed: 12/07/20 18:29> Initial Vital Signs Initial Vital Signs: Vital Signs Temperature 97.8 F 12/06/20 13:29 Pulse Rate 97 H 12/06/20 13:29 Respiratory Rate 12 12/06/20 13:29 Blood Pressure 138/97 H 12/06/20 13:29 Pulse Oximetry 95 12/06/20 13:29 Const General: well developed Limitations: other limitations (Intoxicated) HENMT Head: normal to inspection and normocephalic Resp Effort & Inspection: normal respiratory effort Cardio Rate: regular rate Skin Lesions: no lesions Rashes: no rashes Neuro General: patient alert, patient awake and moves all extremities Cognition: abnormal cognition (Secondary to intoxication) Psych Appearance: disheveled Speech and Movement: restless Mood: labile mood Affect: animated Thought Content: suicidality <Aidan Irwin DO - Last Filed: 12/17/20 08:28> Initial Vital Signs Initial Vital Signs: Vital Signs Temperature 97.8 F 12/06/20 13:29 Pulse Rate 97 H 12/06/20 13:29 Respiratory Rate 12 12/06/20 13:29 Blood Pressure 138/97 H 12/06/20 13:29 Pulse Oximetry 95 12/06/20 13:29 Course <Roderick Sylvia DO - Last Filed: 12/07/20 18:29> Orders Ordered: Discontinued Medications Acetaminophen (Acetaminophen 325 Mg Tablet) 650 mg PO NOW ONE Stop: 12/07/20 14:01 Last Admin: 12/07/20 14:14 Dose: 650 mg Documented by: KATY Chlordiazepoxide HCl (Chlordiazepoxide 25 Mg Capsule) 25 mg PO NOW ONE Stop: 12/07/20 10:27 Last Admin: 12/07/20 10:30 Dose: 25 mg Documented by: KATY Loperamide HCl (Loperamide 2 Mg Capsule) 4 mg PO NOW ONE Stop: 12/07/20 14:01 Last Admin: 12/07/20 14:14 Dose: 4 mg Documented by: KATY Lorazepam (Lorazepam 0.5 Mg Tablet) 1 mg PO NOW ONE Stop: 12/06/20 17:56 Last Admin: 12/06/20 18:04 Dose: 1 mg Documented by: GREGORY Lorazepam (Lorazepam 0.5 Mg Tablet) 1 mg PO NOW ONE Stop: 12/07/20 02:17 Last Admin: 12/07/20 02:20 Dose: 1 mg Documented by: KARIS Lorazepam (Lorazepam 0.5 Mg Tablet) 1 mg PO NOW ONE Stop: 12/07/20 07:56 Last Admin: 12/07/20 08:00 Dose: 1 mg Documented by: KATY Lorazepam (Lorazepam 0.5 Mg Tablet) 1 mg PO NOW ONE Stop: 12/07/20 11:54 Last Admin: 12/07/20 12:04 Dose: 1 mg Documented by: KATY Lorazepam (Lorazepam 0.5 Mg Tablet) 1 mg PO NOW ONE Stop: 12/07/20 15:52 Last Admin: 12/07/20 16:08 Dose: 1 mg Documented by: KATY Lorazepam (Lorazepam 0.5 Mg Tablet) 1 mg PO NOW ONE Stop: 12/07/20 19:23 Last Admin: 12/07/20 19:24 Dose: 1 mg Documented by: TIGRE Nicotine (Nicotine 21 Mg Patch) 21 mg TOP NOW ONE Stop: 12/06/20 19:17 Last Admin: 12/06/20 19:42 Dose: 21 mg Documented by: GREGORY Ondansetron HCl (Ondansetron 4 Mg Odt) 4 mg SL NOW ONE Stop: 12/06/20 20:45 Last Admin: 12/06/20 20:50 Dose: 4 mg Documented by: GREGORY Ondansetron HCl (Ondansetron 4 Mg Odt) 4 mg SL NOW ONE Stop: 12/07/20 05:36 Last Admin: 12/07/20 05:48 Dose: 4 mg Documented by: YOUNG Phenobarbital (Phenobarbital 65 Mg/Ml Vial) 260 mg IV NOW ONE Stop: 12/07/20 16:53 Last Admin: 12/07/20 17:22 Dose: Not Given Documented by: FAVIAN Phenobarbital (Phenobarbital 65 Mg/Ml Vial) 260 mg IM NOW ONE Stop: 12/07/20 17:23 Last Admin: 12/07/20 17:27 Dose: 260 mg Documented by: FAVIAN Vital Signs Vital signs: Vital Signs - 8 hr 12/07/20 14:25 Temperature 98.6 F Pulse Rate 77 Respiratory Rate 20 Blood Pressure 154/87 H Pulse Oximetry 98 <Aidan Irwin DO - Last Filed: 12/17/20 08:28> Course Course Narrative: patient received in signout from Dr. Ward. I have performed an independent history and physical. Patient still suicidal with plan, cooperative. Resting Orders Ordered: Discontinued Medications Acetaminophen (Acetaminophen 325 Mg Tablet) 650 mg PO NOW ONE Stop: 12/07/20 14:01 Last Admin: 12/07/20 14:14 Dose: 650 mg Documented by: KATY Chlordiazepoxide HCl (Chlordiazepoxide 25 Mg Capsule) 25 mg PO NOW ONE Stop: 12/07/20 10:27 Last Admin: 12/07/20 10:30 Dose: 25 mg Documented by: KATY Loperamide HCl (Loperamide 2 Mg Capsule) 4 mg PO NOW ONE Stop: 12/07/20 14:01 Last Admin: 12/07/20 14:14 Dose: 4 mg Documented by: KATY Lorazepam (Lorazepam 0.5 Mg Tablet) 1 mg PO NOW ONE Stop: 12/06/20 17:56 Last Admin: 12/06/20 18:04 Dose: 1 mg Documented by: GREGORY Lorazepam (Lorazepam 0.5 Mg Tablet) 1 mg PO NOW ONE Stop: 12/07/20 02:17 Last Admin: 12/07/20 02:20 Dose: 1 mg Documented by: KARIS Lorazepam (Lorazepam 0.5 Mg Tablet) 1 mg PO NOW ONE Stop: 12/07/20 07:56 Last Admin: 12/07/20 08:00 Dose: 1 mg Documented by: KATY Lorazepam (Lorazepam 0.5 Mg Tablet) 1 mg PO NOW ONE Stop: 12/07/20 11:54 Last Admin: 12/07/20 12:04 Dose: 1 mg Documented by: KATY Lorazepam (Lorazepam 0.5 Mg Tablet) 1 mg PO NOW ONE Stop: 12/07/20 15:52 Last Admin: 12/07/20 16:08 Dose: 1 mg Documented by: KATY Lorazepam (Lorazepam 0.5 Mg Tablet) 1 mg PO NOW ONE Stop: 12/07/20 19:23 Last Admin: 12/07/20 19:24 Dose: 1 mg Documented by: TIGRE Nicotine (Nicotine 21 Mg Patch) 21 mg TOP NOW ONE Stop: 12/06/20 19:17 Last Admin: 12/06/20 19:42 Dose: 21 mg Documented by: GREGORY Ondansetron HCl (Ondansetron 4 Mg Odt) 4 mg SL NOW ONE Stop: 12/06/20 20:45 Last Admin: 12/06/20 20:50 Dose: 4 mg Documented by: GREGORY Ondansetron HCl (Ondansetron 4 Mg Odt) 4 mg SL NOW ONE Stop: 12/07/20 05:36 Last Admin: 12/07/20 05:48 Dose: 4 mg Documented by: YOUNG Phenobarbital (Phenobarbital 65 Mg/Ml Vial) 260 mg IV NOW ONE Stop: 12/07/20 16:53 Last Admin: 12/07/20 17:22 Dose: Not Given Documented by: FAVIAN Phenobarbital (Phenobarbital 65 Mg/Ml Vial) 260 mg IM NOW ONE Stop: 12/07/20 17:23 Last Admin: 12/07/20 17:27 Dose: 260 mg Documented by: FAVIAN Vital Signs Vital signs: Vital Signs - 8 hr 12/07/20 14:25 Temperature 98.6 F Pulse Rate 77 Respiratory Rate 20 Blood Pressure 154/87 H Pulse Oximetry 98 MDM - Psych <Roderick Ward, DO - Last Filed: 12/07/20 18:29> Lab Data Attestation: I reviewed the patient's lab results. Result diagrams: 12/06/20 14:03 12/06/20 14:03 Labs: Lab Results 12/06/20 12/06/20 12/06/20 Range/Units 14:03 14:03 14:03 WBC 12.0 H (4.5-11.0) X10^3/uL RBC 5.15 (4.5-5.9) X10^6/uL Hgb 16.1 (13.5-17.5) g/dL Hct 48.5 (41-53) % MCV 94.2 (80-100) fL MCH 31.3 (26-34) PG MCHC 33.2 (30-36) % RDW 13.8 (11.6-14.8) % Plt Count 202 (150-400) X10^3/uL Neut % (Auto) 42.3 L (50-75) % Lymph % (Auto) 46.4 H (25-40) % Gates % (Auto) 9.6 (3-14) % Eos % (Auto) 1.1 L (2-4) % Baso % (Auto) 0.6 (0-2) % Neut # (Auto) 5100 (0359-3882) /uL Lymph # (Auto) 5600 H (0700-1247) /uL Gates # (Auto) 1200 H (0-900) /uL Eos # (Auto) 100 (0-450) /uL Baso # (Auto) 100 (0-100) /uL Sodium 144 (137-145) mmol/L Potassium 3.9 (3.4-5.1) mmol/L Chloride 105 (98-107) mmol/L Carbon Dioxide 28 (22-32) mmol/L BUN 19 (9-20) mg/dL Creatinine 0.82 (0.66-1.25) mg/dL Estimated GFR > 60.0 (>60) mL/min BUN/Creatinine Ratio 23.2 H (6-22) Glucose 116 H (70-100) mg/dL Calcium 8.8 (8.4-10.2) mg/dL Total Bilirubin 0.6 (0.2-1.3) mg/dL AST 287 H (17-59) IU/L ALT 166 H (<50) IU/L Alkaline Phosphatase 68 (38-126) U/L Total Protein 7.9 (6.3-8.2) g/dL Albumin 4.5 (3.5-5.0) g/dL Globulin 3.4 (1.7-4.1) g/dL Albumin/Globulin Ratio 1.3 (1.0-2.8) Lipase (23-300) U/L TSH 1.72 (0.47-4.68) uIU/mL Salicylates < 1.0 (<20) mg/dL U Opiates 300ng/mL cut (Negative) Ur Oxycodone Screen (Negative) Urine Methadone Screen (Negative) Acetaminophen < 10 L (10-30) ug/mL Ur Barbiturates Screen (Negative) U Tricyclic Antidepress (Negative) Ur Phencyclidine Scrn (Negative) Ur Amphetamines Screen (Negative) U Methamphetamines Scrn (Negative) Ur MDMA Scrn (Ecstasy) (Negative) U Benzodiazepines Scrn (Negative) Urine Cocaine Screen (Negative) U Marijuana (THC) Screen (Negative) Ethyl Alcohol 420 H* ( - 10) mg/dL SARS-CoV-2 (PCR) (Negative) 12/06/20 12/06/20 12/06/20 Range/Units 14:03 19:05 22:13 WBC (4.5-11.0) X10^3/uL RBC (4.5-5.9) X10^6/uL Hgb (13.5-17.5) g/dL Hct (41-53) % MCV (80-100) fL MCH (26-34) PG MCHC (30-36) % RDW (11.6-14.8) % Plt Count (150-400) X10^3/uL Neut % (Auto) (50-75) % Lymph % (Auto) (25-40) % Gates % (Auto) (3-14) % Eos % (Auto) (2-4) % Baso % (Auto) (0-2) % Neut # (Auto) (3074-6855) /uL Lymph # (Auto) (3041-5438) /uL Gates # (Auto) (0-900) /uL Eos # (Auto) (0-450) /uL Baso # (Auto) (0-100) /uL Sodium (137-145) mmol/L Potassium (3.4-5.1) mmol/L Chloride (98-107) mmol/L Carbon Dioxide (22-32) mmol/L BUN (9-20) mg/dL Creatinine (0.66-1.25) mg/dL Estimated GFR (>60) mL/min BUN/Creatinine Ratio (6-22) Glucose (70-100) mg/dL Calcium (8.4-10.2) mg/dL Total Bilirubin (0.2-1.3) mg/dL AST (17-59) IU/L ALT (<50) IU/L Alkaline Phosphatase (38-126) U/L Total Protein (6.3-8.2) g/dL Albumin (3.5-5.0) g/dL Globulin (1.7-4.1) g/dL Albumin/Globulin Ratio (1.0-2.8) Lipase 87 (23-300) U/L TSH (0.47-4.68) uIU/mL Salicylates (<20) mg/dL U Opiates 300ng/mL cut Negative (Negative) Ur Oxycodone Screen Negative (Negative) Urine Methadone Screen Negative (Negative) Acetaminophen (10-30) ug/mL Ur Barbiturates Screen Negative (Negative) U Tricyclic Antidepress Negative (Negative) Ur Phencyclidine Scrn Negative (Negative) Ur Amphetamines Screen Negative (Negative) U Methamphetamines Scrn Negative (Negative) Ur MDMA Scrn (Ecstasy) Positive H (Negative) U Benzodiazepines Scrn Positive H (Negative) Urine Cocaine Screen Negative (Negative) U Marijuana (THC) Screen Positive H (Negative) Ethyl Alcohol 354 H ( - 10) mg/dL SARS-CoV-2 (PCR) (Negative) 12/07/20 12/07/20 12/07/20 Range/Units 05:51 11:55 13:00 WBC (4.5-11.0) X10^3/uL RBC (4.5-5.9) X10^6/uL Hgb (13.5-17.5) g/dL Hct (41-53) % MCV (80-100) fL MCH (26-34) PG MCHC (30-36) % RDW (11.6-14.8) % Plt Count (150-400) X10^3/uL Neut % (Auto) (50-75) % Lymph % (Auto) (25-40) % Gates % (Auto) (3-14) % Eos % (Auto) (2-4) % Baso % (Auto) (0-2) % Neut # (Auto) (1012-3129) /uL Lymph # (Auto) (9855-4831) /uL Gates # (Auto) (0-900) /uL Eos # (Auto) (0-450) /uL Baso # (Auto) (0-100) /uL Sodium (137-145) mmol/L Potassium (3.4-5.1) mmol/L Chloride (98-107) mmol/L Carbon Dioxide (22-32) mmol/L BUN (9-20) mg/dL Creatinine (0.66-1.25) mg/dL Estimated GFR (>60) mL/min BUN/Creatinine Ratio (6-22) Glucose (70-100) mg/dL Calcium (8.4-10.2) mg/dL Total Bilirubin (0.2-1.3) mg/dL AST (17-59) IU/L ALT (<50) IU/L Alkaline Phosphatase (38-126) U/L Total Protein (6.3-8.2) g/dL Albumin (3.5-5.0) g/dL Globulin (1.7-4.1) g/dL Albumin/Globulin Ratio (1.0-2.8) Lipase (23-300) U/L TSH (0.47-4.68) uIU/mL Salicylates (<20) mg/dL U Opiates 300ng/mL cut (Negative) Ur Oxycodone Screen (Negative) Urine Methadone Screen (Negative) Acetaminophen (10-30) ug/mL Ur Barbiturates Screen (Negative) U Tricyclic Antidepress (Negative) Ur Phencyclidine Scrn (Negative) Ur Amphetamines Screen (Negative) U Methamphetamines Scrn (Negative) Ur MDMA Scrn (Ecstasy) (Negative) U Benzodiazepines Scrn (Negative) Urine Cocaine Screen (Negative) U Marijuana (THC) Screen (Negative) Ethyl Alcohol 190 H 56 H ( - 10) mg/dL SARS-CoV-2 (PCR) Negative (Negative) Urine Dip Bedside Urine Glucose Negative Bedside Urine Bilirubin - Negative Bedside Urine Ketone - Negative Urine Specific [place] 1.030 Bedside Urine Occult Blood - Negative Bedside Urine pH 6.0 Bedside Urine Protein +/- 15 Bedside Urine Urobilinogen - Negative Bedside Urine Nitrite - Negative Bedside Urine Leukocytes - Negative Esterase MDM Narrative Medical decision making narrative: Patient's alcohol is significantly elevated. He has expressed multiple times these suicidal ideation. Patient unable to be evaluated by social work given his elevated alcohol level. Will watch here in the emergency department until medically cleared. Care turned over to Dr. Irwin at change of shift follow-up and continue to observe. 12/07/20 Dr ward patient's alcohol level is now down below legal limit. His CIWA scores have all been less than 6. He has been maintained on Ativan that has been prescribed approximately every 2 hours. He has not had any seizure activity. He has been cooperative. Has been evaluated by social Work. Is medically cleared. Patient has been seen today by social Work. He has required some medication for anxiety throughout the day and we did consider alcohol withdrawal however his CIWA scores have remained low. I suspect that his anxiety and other issues related to his mental health than baseline anxiety rather than alcohol withdrawal. Social work was able to find placement at [facility] where he can receive mental health facility and also alcohol treatment. Patient is stable for transport. <Aidan Irwin, DO - Last Filed: 12/17/20 08:28> Lab Data Labs: Lab Results 12/06/20 12/06/20 12/06/20 Range/Units 14:03 14:03 14:03 WBC 12.0 H (4.5-11.0) X10^3/uL RBC 5.15 (4.5-5.9) X10^6/uL Hgb 16.1 (13.5-17.5) g/dL Hct 48.5 (41-53) % MCV 94.2 (80-100) fL MCH 31.3 (26-34) PG MCHC 33.2 (30-36) % RDW 13.8 (11.6-14.8) % Plt Count 202 (150-400) X10^3/uL Neut % (Auto) 42.3 L (50-75) % Lymph % (Auto) 46.4 H (25-40) % Gates % (Auto) 9.6 (3-14) % Eos % (Auto) 1.1 L (2-4) % Baso % (Auto) 0.6 (0-2) % Neut # (Auto) 5100 (6021-6426) /uL Lymph # (Auto) 5600 H (3307-2435) /uL Gates # (Auto) 1200 H (0-900) /uL Eos # (Auto) 100 (0-450) /uL Baso # (Auto) 100 (0-100) /uL Sodium 144 (137-145) mmol/L Potassium 3.9 (3.4-5.1) mmol/L Chloride 105 (98-107) mmol/L Carbon Dioxide 28 (22-32) mmol/L BUN 19 (9-20) mg/dL Creatinine 0.82 (0.66-1.25) mg/dL Estimated GFR > 60.0 (>60) mL/min BUN/Creatinine Ratio 23.2 H (6-22) Glucose 116 H (70-100) mg/dL Calcium 8.8 (8.4-10.2) mg/dL Total Bilirubin 0.6 (0.2-1.3) mg/dL AST 287 H (17-59) IU/L ALT 166 H (<50) IU/L Alkaline Phosphatase 68 (38-126) U/L Total Protein 7.9 (6.3-8.2) g/dL Albumin 4.5 (3.5-5.0) g/dL Globulin 3.4 (1.7-4.1) g/dL Albumin/Globulin Ratio 1.3 (1.0-2.8) Lipase (23-300) U/L TSH 1.72 (0.47-4.68) uIU/mL Salicylates < 1.0 (<20) mg/dL U Opiates 300ng/mL cut (Negative) Ur Oxycodone Screen (Negative) Urine Methadone Screen (Negative) Acetaminophen < 10 L (10-30) ug/mL Ur Barbiturates Screen (Negative) U Tricyclic Antidepress (Negative) Ur Phencyclidine Scrn (Negative) Ur Amphetamines Screen (Negative) U Methamphetamines Scrn (Negative) Ur MDMA Scrn (Ecstasy) (Negative) U Benzodiazepines Scrn (Negative) Urine Cocaine Screen (Negative) U Marijuana (THC) Screen (Negative) Ethyl Alcohol 420 H* ( - 10) mg/dL SARS-CoV-2 (PCR) (Negative) 12/06/20 12/06/20 12/06/20 Range/Units 14:03 19:05 22:13 WBC (4.5-11.0) X10^3/uL RBC (4.5-5.9) X10^6/uL Hgb (13.5-17.5) g/dL Hct (41-53) % MCV (80-100) fL MCH (26-34) PG MCHC (30-36) % RDW (11.6-14.8) % Plt Count (150-400) X10^3/uL Neut % (Auto) (50-75) % Lymph % (Auto) (25-40) % Gates % (Auto) (3-14) % Eos % (Auto) (2-4) % Baso % (Auto) (0-2) % Neut # (Auto) (0869-8126) /uL Lymph # (Auto) (5481-9571) /uL Gates # (Auto) (0-900) /uL Eos # (Auto) (0-450) /uL Baso # (Auto) (0-100) /uL Sodium (137-145) mmol/L Potassium (3.4-5.1) mmol/L Chloride (98-107) mmol/L Carbon Dioxide (22-32) mmol/L BUN (9-20) mg/dL Creatinine (0.66-1.25) mg/dL Estimated GFR (>60) mL/min BUN/Creatinine Ratio (6-22) Glucose (70-100) mg/dL Calcium (8.4-10.2) mg/dL Total Bilirubin (0.2-1.3) mg/dL AST (17-59) IU/L ALT (<50) IU/L Alkaline Phosphatase (38-126) U/L Total Protein (6.3-8.2) g/dL Albumin (3.5-5.0) g/dL Globulin (1.7-4.1) g/dL Albumin/Globulin Ratio (1.0-2.8) Lipase 87 (23-300) U/L TSH (0.47-4.68) uIU/mL Salicylates (<20) mg/dL U Opiates 300ng/mL cut Negative (Negative) Ur Oxycodone Screen Negative (Negative) Urine Methadone Screen Negative (Negative) Acetaminophen (10-30) ug/mL Ur Barbiturates Screen Negative (Negative) U Tricyclic Antidepress Negative (Negative) Ur Phencyclidine Scrn Negative (Negative) Ur Amphetamines Screen Negative (Negative) U Methamphetamines Scrn Negative (Negative) Ur MDMA Scrn (Ecstasy) Positive H (Negative) U Benzodiazepines Scrn Positive H (Negative) Urine Cocaine Screen Negative (Negative) U Marijuana (THC) Screen Positive H (Negative) Ethyl Alcohol 354 H ( - 10) mg/dL SARS-CoV-2 (PCR) (Negative) 12/07/20 12/07/20 12/07/20 Range/Units 05:51 11:55 13:00 WBC (4.5-11.0) X10^3/uL RBC (4.5-5.9) X10^6/uL Hgb (13.5-17.5) g/dL Hct (41-53) % MCV (80-100) fL MCH (26-34) PG MCHC (30-36) % RDW (11.6-14.8) % Plt Count (150-400) X10^3/uL Neut % (Auto) (50-75) % Lymph % (Auto) (25-40) % Gates % (Auto) (3-14) % Eos % (Auto) (2-4) % Baso % (Auto) (0-2) % Neut # (Auto) (6624-6869) /uL Lymph # (Auto) (3485-8598) /uL Gates # (Auto) (0-900) /uL Eos # (Auto) (0-450) /uL Baso # (Auto) (0-100) /uL Sodium (137-145) mmol/L Potassium (3.4-5.1) mmol/L Chloride (98-107) mmol/L Carbon Dioxide (22-32) mmol/L BUN (9-20) mg/dL Creatinine (0.66-1.25) mg/dL Estimated GFR (>60) mL/min BUN/Creatinine Ratio (6-22) Glucose (70-100) mg/dL Calcium (8.4-10.2) mg/dL Total Bilirubin (0.2-1.3) mg/dL AST (17-59) IU/L ALT (<50) IU/L Alkaline Phosphatase (38-126) U/L Total Protein (6.3-8.2) g/dL Albumin (3.5-5.0) g/dL Globulin (1.7-4.1) g/dL Albumin/Globulin Ratio (1.0-2.8) Lipase (23-300) U/L TSH (0.47-4.68) uIU/mL Salicylates (<20) mg/dL U Opiates 300ng/mL cut (Negative) Ur Oxycodone Screen (Negative) Urine Methadone Screen (Negative) Acetaminophen (10-30) ug/mL Ur Barbiturates Screen (Negative) U Tricyclic Antidepress (Negative) Ur Phencyclidine Scrn (Negative) Ur Amphetamines Screen (Negative) U Methamphetamines Scrn (Negative) Ur MDMA Scrn (Ecstasy) (Negative) U Benzodiazepines Scrn (Negative) Urine Cocaine Screen (Negative) U Marijuana (THC) Screen (Negative) Ethyl Alcohol 190 H 56 H ( - 10) mg/dL SARS-CoV-2 (PCR) Negative (Negative) Urine Dip Bedside Urine Glucose Negative Bedside Urine Bilirubin - Negative Bedside Urine Ketone - Negative Urine Specific [place] 1.030 Bedside Urine Occult Blood - Negative Bedside Urine pH 6.0 Bedside Urine Protein +/- 15 Bedside Urine Urobilinogen - Negative Bedside Urine Nitrite - Negative Bedside Urine Leukocytes - Negative Esterase Discharge Plan Departure Patient Disposition: Xfer Psychiatric Hosp Clinical Impression: Alcohol intoxication, Suicidal ideation, Acute anxiety Referrals: Chip Gonzalez MD [Primary Care Provider] -
[2020-12-06 14:19] LABS: Add Manual Diff / Slide Review NO; Basophils Absolute Auto 100 /uL (0-100); Basophils Percent Auto 0.6 % (0-2); Eosinophils Absolute Auto 100 /uL (0-450); Eosinophils Percent Auto 1.1 % (2-4); Hematocrit 48.5 % (41-53); Hemoglobin 16.1 g/dL (13.5-17.5); Lymphocytes Absolute Auto 5600 /uL (1100-4500); Lymphocytes Percent Auto 46.4 % (25-40); Mean Corpuscular HGB Conc 33.2 % (30-36); Mean Corpuscular Hemoglobin 31.3 PG (26-34); Mean Corpuscular Volume 94.2 fL (80-100); Monocytes Absolute Auto 1200 /uL (0-900); Monocytes Percent Auto 9.6 % (3-14); Neutrophils Absolute Auto 5100 /uL (1500-7000); Neutrophils Percent Auto 42.3 % (50-75); Platelet Count 202 X10^3/uL (150-400); Red Blood Cell Count 5.15 X10^6/uL (4.5-5.9); Red Cell Distribution Width 13.8 % (11.6-14.8)
[2020-12-06 14:24] LABS: Lipase 87 U/L (23-300)
[2020-12-06 14:25] LABS: Acetaminophen < 10 ug/mL (10-30); Alanine Aminotransferase 166 IU/L (<50); Albumin 4.5 g/dL (3.5-5.0); Albumin Globulin Ratio 1.3 (1.0-2.8); Alkaline Phosphatase 68 U/L (38-126); Aspartate Aminotransferase 287 IU/L (17-59); BUN Creatinine Ratio 23.2 (6-22); Bilirubin Total 0.6 mg/dL (0.2-1.3); Blood Urea Nitrogen 19 mg/dL (9-20); Calcium 8.8 mg/dL (8.4-10.2); Carbon Dioxide 28 mmol/L (22-32); Chloride 105 mmol/L (98-107); Estimated Glomerular Filt Rate > 60.0 mL/min (>60); Globulin 3.4 g/dL (1.7-4.1); Glucose 116 mg/dL (70-100); HEMOLYSIS 26 (0-50); Potassium 3.9 mmol/L (3.4-5.1); Salicylate < 1.0 mg/dL (<20); Sodium 144 mmol/L (137-145); Total Protein 7.9 g/dL (6.3-8.2)
[2020-12-06 14:35] LABS: Ethanol (ETOH) 420 mg/dL
--- NOTE | 2020-12-06 14:35 | PC.NURSE ---
Pt and significant other are having an argument. Pt seems to have calmed down a little and is lying down. Significant other sitting close.
[2020-12-06 15:15] LABS: Thyroid Stimulating Hormone 1.72 uIU/mL (0.47-4.68)
--- NOTE | 2020-12-06 15:54 | PC.NURSE ---
Pt significant other is requesting to stay with pt overnight. Healthcare team agrees this would be beneficial to the patient. Pt phone is being charged in nurse station outside of room.
--- NOTE | 2020-12-06 16:08 | CM.SWNOTE ---
HELPER SHEAR OPERATOR note HELPER SHEAR OPERATOR consult requested for patient. Patient is a 40 y/o male who presents to this ED with partner due to SI with plan and ETOH intoxication. Patient?s ETOH 420 mg/dL at 1400 12/06. Due to level of ETOH intoxication, it is unlikely that patient will be clinically sober for assessment by end of shift. HELPER SHEAR OPERATOR completes chart review. Patient presented to this ED in July, for SI and ETOH intoxication and was assessed by this HELPER SHEAR OPERATOR. Patient did elope during this stay, was returned to ED, and was discharged after staying the night in this ED. Patient does have FATIMAH report which indicates that, since July ED visit, patient has been seen at [facility] emergency 3x for SI. In addition, per FATIMAH report, patient was PABLO?ed and received treatment at [facility] in [place]. Patient was brought to ED today by counselor from [facility]. Pl: patient to remain in ED and to be assessed by HELPER SHEAR OPERATOR or [facility] when clinically sober. MEGHAN Camara
[2020-12-06] MEDS: LORazepam 0.5 MG TABLET 1 MG PO (18:04)
[2020-12-06 19:28] LABS: Ethanol (ETOH) 354 mg/dL
[2020-12-06] MEDS: NICOTINE 21 MG PATCH TOP (19:42)
--- NOTE | 2020-12-06 20:30 | PC.NURSE ---
pt stated feeling need to vomit and was provided bag.
[2020-12-06] MEDS: ONDANSETRON 4 MG ODT SL (20:50)
--- NOTE | 2020-12-06 22:09 | PC.NURSE ---
Patient has along history of SI and has tried to cut his wrists in the past. He states that he doesn't want to live anymore. He will not tell the nursing staff what his plan it. He has been sleeping off and on since he's been here.
[2020-12-06 23:00] VITALS: BP 123/73; PULSE 79; RESP 16; O2SAT 96
[2020-12-06 23:29] VITALS: TEMP 35.9
[2020-12-07 01:24] LABS: UR Morphine/Opiate cutoff 300 Negative (Negative); Ur Creatinine 50 (Normal); Ur Specific Gravity 1.025 (Normal); Urine Amphetamines Negative (Negative); Urine Barbiturates Negative (Negative); Urine Benzodiazepines Positive (Negative); Urine Cocaine Negative (Negative); Urine MDMA Positive (Negative); Urine Methadone Negative (Negative); Urine Methamphetamines Negative (Negative); Urine Oxycodone Negative (Negative); Urine Phencyclidine Negative (Negative); Urine Tetrahydrocannabinol Positive (Negative); Urine Tricyclic Antidepressant Negative (Negative); Urine pH 5 (Normal)
[2020-12-07] MEDS: LORazepam 0.5 MG TABLET 1 MG PO ×5 (02:20→19:24)
[2020-12-07] MEDS: ONDANSETRON 4 MG ODT SL (05:48)
[2020-12-07 06:19] LABS: Ethanol (ETOH) 190 mg/dL
[2020-12-07 08:09] VITALS: BP 153/89; PULSE 80; RESP 17; TEMP 36.4; O2SAT 93
[2020-12-07] MEDS: chlordiazePOXIDE 25 MG CAPSULE PO (10:30)
--- NOTE | 2020-12-07 11:19 | PC.NURSE ---
CLINICAL SYSTEMS EDUCATOR is in the room talking with patient. He is calm at this time.
--- NOTE | 2020-12-07 11:33 | PC.NURSE ---
Patient is in his room. He is sitting on his bed. His partner is sitting with him.
--- NOTE | 2020-12-07 11:49 | PC.NURSE ---
Patient is sitting up in the chair in his room. His partner is laying down in the bed. Patient is calm at this time.
[2020-12-07 12:16] LABS: Ethanol (ETOH) 56 mg/dL
--- NOTE | 2020-12-07 12:39 | PC.NURSE ---
Pt safety monitor Nissa MERCEDES from OR, documenting pt safety monitoring on paper chart.
[2020-12-07 13:32] LABS: COVID19 -Nasal RAPID Negative (Negative)
[2020-12-07] MEDS: LOPERAMIDE 2 MG CAPSULE 4 MG PO (14:14)
[2020-12-07] MEDS: ACETAMINOPHEN 325 MG TABLET 650 MG PO (14:14)
[2020-12-07 14:25] VITALS: BP 154/87; PULSE 77; RESP 20; TEMP 37; O2SAT 98
--- NOTE | 2020-12-07 15:00 | PC.NURSE ---
Addendum entered by Mary Flood R.N. 12/07/20 15:02: Pt calm and cooperative. CIWA 6 at 1400. Original Note: CIWA 6 at 1400
--- NOTE | 2020-12-07 15:37 | CM.SWNOTE ---
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 According to SUPPLY COORDINATOR John Novak 's note, FATIMAH report reviewed and patient has recent ER visits at [facility] for same presentation, SI and ETOH . Patient has h/o PABLO after which he had a stay at [facility] in [place]. Precipitating Event(s) Unemployed, tumultuous relationship, recent move from [place] (last 6 months), Recent of a good friend's mother and inability to cope led to binge drinking and exacerbated constant thoughts of SI Patient Strengths Supportive boyfriend, stable housing, counseling and outpatient case management through [facility]. Current Behavioral Health Provider(s) [facility] 1-2 times Include Facility, Provider, Ph. # weekly Presenting Problem Presents w/BAL 420, presents stating he wants to kill himself. Rehab Facilities? ((Date(s), Location(s) None reported ) History of Withdrawal? Seizures? Yes, h/o w/d at home w/seizure activity Longest Period of Sobriety 2-4 weeks Psychosocial information & Support Lives w/partner Juan R, seeking Systems sobriety and relief from constant thoughts of suicide, severe depression and anxiety School/Work Currently unemployed and receives syed, food assistance through [facility] Legal Matters - Outstanding Issues None reported Orientation (Person/Place/Time) WNL Stated Mood Flat affect, remorseful seeking help Affect (Congruent with Mood?) Yes Thought Content - Specify/Describe WNL Obsessions, Delusions, Hallucinations Thought Processes (Qjzgdca-Atuakxug-Rlbf WNL Czthpwse-Jwsrxwuw-Tzpkmvhqsr- Hhifunxxeefwux-Uhwtyii-Yobclbimapxn- Thought Blocking) Speech (Guwkwn-Fxqv-Ygpbznp-Rapid-Soft- Normal Loud-Pressured) Motor (Ymxwgk-Pznriaqjn-Oyud-Other) Normal Insight (Cnft-Cblr-Vbgr/Limited) Fair Judgement (Cqzw-Nkge-Zsuo/Limited) Fair Impulse Control (Adequate-Impaired) Impaired Memory (Ijylqeqxh-Ewmydb-Fldgmt, Intact Impaired-Intact) Concentration (Intact-Impaired) Impaired Attention (Intact-Impaired) Intact Behavior (Appropriate-Inappropriate) Appropriate, calm and cooperative Suicidal Ideation (Plan) Yes Homicidal Ideation (Plan) No Comment Patient admits he lives with thoughts of SI everyday and often surveys his surroundings to think of how he might end his life. Patient admits he has plan of suicide by ETOH w/ pill consumption Intervention Reviewed presentation to the ED w/patient and partner Juan R. Patient lives w/partner, currently unemployed, admits that he has longstanding struggle w/severe and debilitating anxiety and depression w/constant thoughts of suicide, exacerbated recently by a loss in his family. Patient has been on antipsychotics since July and since then states I don't drink everyday but when I drink, I drink a lot. Patient binges until the point of black out approx. a fifth (that he remembers) during binge episodes. Prior to July, patient drank approx 1/2 gal of hard alcohol daily. RA Plan Patient admits to struggle w/depression and self medicating w/ ETOH. Patient's BAL down below 50, CIWA at 6 w/in the last hour, patient agreeable to discharging to a dual dx unit if available. Partner Jua nR admits he does not feel patient is safe at home at this time, patient has historically shown poor insight into the severity of his substance abuse and MH struggle as well as poor impulse control w/continued ETOh use Will attempt medical detox vs dual dx unit placement. 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 He added, but I dont have access to that. Another plan is diving off the bed head first. Pt states he does not have a plan in the hospital and contracts to safety here. Level of Consciousness Alert,Follows Commands, Restless Patient Orientation Name,Age,Birthday,Month,Date, Year,Day of Week,Place, Situation Patient Behavior/Mood Anxious,Cooperative,Talkative Ability to Follow Directions Excellent Patient Cognition Impaired Yes: still feels intoxicated Affect Description Anxious Patient Appearance Well Groomed Hallucination Type Tactile Thought Process: Goal-directed Depressive Symptoms Back Pain,Difficulty Sleeping, Difficulty Making Decisions, Feelings of Worthlessness, Hopelessness,Increased Anxiety ,Increased Irritability, Isolating Oneself From Friends and Family Major Depressive Episode Yes Feelings of Hopelessness Yes Suicidal Ideation Constant Suicide Plan Vague Homicidal Ideation None Nausea/Vomiting None
--- NOTE | 2020-12-07 15:50 | CM.SWNOTE ---
Addendum entered by MEGHAN Cross 12/07/20 16:08: [facility] P# [phone] #2 F# [phone] Original Note: DISPATCH SUPERVISOR Note Patient admits to heavy ETOH use, sporadic binging for the last 3 months, previously daily 1/2 Gal use w/active SI and plan, failed outpatient supports. Attempted the following today: Acute Medical Detox: *[facility] No beds *[facility] [phone] indicated one available male bed, phone tag and never heard back after 1300 *[facility] [phone] (admissions only M-F) No Beds Subacute Detox: *[facility] [phone] No beds, No MH *[facility] [phone] Cannot do any ativan *[facility] [phone] No beds JW
--- NOTE | 2020-12-07 17:25 | PC.NURSE ---
1725-Pt is lying down
[2020-12-07] MEDS: PHENobarbital 65 MG/ML VIAL 260 MG IM (17:27)
--- NOTE | 2020-12-07 17:31 | PC.NURSE ---
1730-RN in room giving pt medication. Pt sitting up on the stretcher.
--- NOTE | 2020-12-07 17:53 | PC.NURSE ---
Call from [facility]. Updated screener. Reviewed medications.
--- NOTE | 2020-12-07 18:12 | PC.NURSE ---
1809-Pt is pacing in the room, eating his dinner.
--- NOTE | 2020-12-07 18:16 | PC.NURSE ---
1814-Pt will be transfered to [facility]. [facility] will be here around 1914 to take pt over to facility
--- NOTE | 2020-12-07 18:39 | PC.NURSE ---
1840-Dr. Ward is in the room with pt talking about pt's transfer to [place].
[2020-12-07 18:48] VITALS: BP 169/95; PULSE 103; RESP 20; TEMP 36.6; O2SAT 94
[2020-12-07 19:00] VITALS: BP 169/95; PULSE 103; RESP 20; TEMP 36.6; O2SAT 96
[2020-12-07 19:03] VITALS: O2SAT 96
--- NOTE | 2020-12-07 19:23 | PC.NURSE ---
1922-[facility] is here to pick pt up and transfer pt to [place]. Rn gave pt some meds before pt leaves. Warm blankets provided for pt comfort.
== END 2020-12-07 19:29 ==
PROVIDERS: Emergency Medicine; Emergency Provider Emergency Medicine; Family Provider Family Medicine; PCP Family Medicine
DX: F10.129 Alcohol abuse with intoxication, unspecified (principal); Y90.8 Blood alcohol level of 240 mg/100 ml or more; R45.851 Suicidal ideations; F41.9 Anxiety disorder, unspecified; Z20.822 Contact with and (suspected) exposure to COVID-19
CPT/HCPCS: 36415; 80053; 80305; 80320; 80329; 81003; 83690; 84443; 85025; 87635; 96372; 99284; C9803; G0480; J2560

== ENCOUNTER 2020-12-19 09:54 | Emergency (ER) | payer OTHER, MEDICAID, SELFPAY ==
[2020-12-19 10:03] VITALS: BP 162/99; PULSE 98; RESP 14; TEMP 36.6; O2SAT 96; BMI 39.1
[2020-12-19 10:49] LABS: Add Manual Diff / Slide Review NO; Basophils Absolute Auto 100 /uL (0-100); Basophils Percent Auto 1.2 % (0-2); Eosinophils Absolute Auto 0 /uL (0-450); Eosinophils Percent Auto 0.5 % (2-4); Hematocrit 41.9 % (41-53); Hemoglobin 14.3 g/dL (13.5-17.5); Lymphocytes Absolute Auto 2700 /uL (1100-4500); Lymphocytes Percent Auto 28.9 % (25-40); Mean Corpuscular Volume 94.1 fL (80-100); Monocytes Absolute Auto 800 /uL (0-900); Monocytes Percent Auto 8.9 % (3-14); Neutrophils Absolute Auto 5700 /uL (1500-7000); Neutrophils Percent Auto 60.5 % (50-75); Platelet Count 183 X10^3/uL (150-400); Red Blood Cell Count 4.46 X10^6/uL (4.5-5.9); Red Cell Distribution Width 13.6 % (11.6-14.8); White Blood Cell Count 9.5 X10^3/uL (4.5-11.0)
--- NOTE | 2020-12-19 10:50 | PC.NURSE ---
Pt is continuously trying to get up and walk around the room. Pt is extremely unsteady and is resistant to redirection to sit/lay in the bed. I am extremely concerned about the safety of the pt and the staff if he were to fall d/t the pt's size and temperament. made of aware of situation. Ordering anti anxiety medication. 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
[2020-12-19 10:51] LABS: Bacteria Urine None Seen; RBC Urine None Seen (0-5/HPF); WBC Urine None Seen (0-5/HPF)
[2020-12-19 10:55] LABS: Appearance Urine UA CLEAR; Bilirubin Urine UA NEGATIVE (NEGATIVE); Color Urine UA YELLOW; Glucose Urine UA NEGATIVE (Negative); Ketones Urine UA NEGATIVE (NEGATIVE); Leukocyte Esterase Urine UA NEGATIVE (NEGATIVE); Nitrite Urine UA NEGATIVE (Negative); Occult Blood Urine UA NEGATIVE (Negative); Protein Urine UA NEGATIVE (Negative); Specific Gravity Urine UA <=1.005 (1.000-1.035); Urobilinogen Urine UA 0.2 E.U./dL (0.2)
[2020-12-19 10:57] LABS: Culture Indicated Urine Cult Not Indicated; Urine Comments Microscopic Normal
[2020-12-19 10:58] LABS: UR Morphine/Opiate cutoff 300 Negative (Negative); Ur Creatinine Normal (Normal); Ur Specific Gravity Normal (Normal); Urine Amphetamines Negative (Negative); Urine Barbiturates Negative (Negative); Urine Benzodiazepines Negative (Negative); Urine Cocaine Negative (Negative); Urine MDMA Negative (Negative); Urine Methadone Negative (Negative); Urine Methamphetamines Negative (Negative); Urine Oxycodone Negative (Negative); Urine Phencyclidine Negative (Negative); Urine Tetrahydrocannabinol Negative (Negative); Urine Tricyclic Antidepressant Negative (Negative); Urine pH Normal (Normal)
[2020-12-19 11:01] LABS: Alanine Aminotransferase 97 IU/L (<50); Albumin 4.9 g/dL (3.5-5.0); Albumin Globulin Ratio 1.5 (1.0-2.8); Alkaline Phosphatase 58 U/L (38-126); Aspartate Aminotransferase 79 IU/L (17-59); BUN Creatinine Ratio 19.7 (6-22); Bilirubin Total 0.3 mg/dL (0.2-1.3); Blood Urea Nitrogen 13 mg/dL (9-20); Calcium 10.3 mg/dL (8.4-10.2); Carbon Dioxide 25 mmol/L (22-32); Chloride 104 mmol/L (98-107); Estimated Glomerular Filt Rate > 60.0 mL/min (>60); Ethanol (ETOH) 200 mg/dL; Globulin 3.2 g/dL (1.7-4.1); Glucose 102 mg/dL (70-100); HEMOLYSIS < 15 (0-50); Potassium 3.7 mmol/L (3.4-5.1); Sodium 139 mmol/L (137-145); Total Protein 8.1 g/dL (6.3-8.2)
--- NOTE | 2020-12-19 11:05 | ED_ITS ---
HPI - Alcohol General Chief Complaint: Toxicology Problem Stated Complaint: Intoxicated ETOH Time Seen by Provider: 12/19/20 09:55 Source: patient, family and EMS Mode of arrival: EMS Limitations: no limitations History of Present Illness HPI narrative: 40M former smoker with extensive alcohol history as well as HTN and mental health problems presents by EMS due to altered mental status. He was found in his car at a local bus stop and reporting green party contacted 911. On their arrival they found patient's slurring, admitting to have consumed half a bottle of hard liquor. He denies any street drugs. He denies any recent trauma. He has had no nausea, vomiting or diarrhea. His last drink was just prior to his arrival. He denies any suicidal or homicidal ideation. Related Data Home Medications Medication Instructions Recorded Confirmed escitalopram oxalate 20 mg tablet 20 mg PO QAM 08/31/20 12/07/20 risperidone 2 mg tablet 4 mg PO BEDTIME tab 10/03/20 12/07/20 alprazolam 0.25 mg PO DAILY PRN 12/07/20 12/07/20 gabapentin 300 mg PO TID 12/07/20 12/07/20 lisinopril 20 mg PO QAM 12/07/20 12/07/20 naltrexone 50 mg PO QAM 12/07/20 12/07/20 Previous Rx's Medication Instructions Recorded emtricitabine 200 mg-tenofovir 1 tab PO DAILY #90 tab 11/28/20 disoproxil fumarate 300 mg tablet loperamide 2 mg tablet 2 mg PO Q4H PRN #90 tab 11/28/20 methocarbamol 750 mg tablet 750 mg PO Q8H PRN #60 tab 11/28/20 prazosin 1 mg capsule 1 mg PO QPM #30 cap 11/28/20 varenicline 0.5 mg (11)-1 mg (42) See Rx Instructions PO PER PKG DIR 11/30/20 tablets in a dose pack #53 ea zolpidem 10 mg tablet 10 mg PO BEDTIME PRN #30 tab 12/17/20 Allergies Allergy/AdvReac Type Severity Reaction Status Date / Time tramadol AdvReac Severe Seizure Verified 12/19/20 10:03 hydrocodone AdvReac Intermediate ITCHING Verified 12/19/20 10:03 Review of Systems Constitutional Constitutional: Denies chills, Denies fatigue, Denies fever(s), Denies frequent falls, Denies lethargy and Denies weakness Eyes Eyes: Denies change in vision, Denies eye discharge, Denies irritation and Denies loss of vision ENT Ears, Nose, Mouth, and Throat: Denies change in voice, Denies dizziness, Denies neck pain, Denies sore throat and Denies throat swelling Cardiovascular Cardiovascular: Denies chest pain, Denies irregular heart rhythm, Denies lightheadedness, Denies palpitations, Denies dyspnea, Denies dyspnea on exertion and Denies orthopnea Respiratory Respiratory: Denies cough, Denies dyspnea, Denies dyspnea on exertion and Denies wheezing Gastrointestinal Gastrointestinal: Denies abdominal pain, Denies change in bowel habits, Denies diarrhea, Denies nausea and Denies vomiting Musculoskeletal Musculoskeletal: Denies neck pain and Denies numbness Integumentary/Breasts Skin/Breast: Denies pruritus, Denies erythema, Denies rash and Denies wounds Neurologic Neurologic: Reports abnormal speech, Denies behavioral changes, Denies confusion, Denies dizziness, Denies frequent falls, Denies loss of vision, Denies numbness and Denies weakness Psychiatric Psychiatric: Denies anxiety, Denies behavioral changes, Denies confusion, Denies depression, Denies homicidal ideation and Denies suicidal ideation Endocrine Endocrine: Denies fatigue, Denies flushing and Denies palpitations Hematologic/Lymphatic Hematologic/Lymphatic: Denies easy bruising Allergic/Immunologic Allergic/Immunologic: Denies urticaria, Denies throat swelling and Denies wheezing Patient History Medical History Acute depression Anesthesia in both legs Cervicalgia Chronic diarrhea Hypertension Insomnia Left testicular pain Moderate dependence on smoking Obesity Right shoulder pain Schizo affective schizophrenia Spondylosis of cervical spine Surgical History Hx of shoulder surgery Hx of tonsillectomy Umbilical hernia Family History Father Hypertension Cancer Brother Hypertension Gallstones Diabetes mellitus Mother Diabetes mellitus Sister Diabetes mellitus Grandmother Diabetes mellitus Grandfather Stroke Social History marital status: unknown household members: significant other Smoking Status: Former smoker alcohol intake: former substance use type: does not use Smoking Status: Former smoker alcohol intake frequency: other Substance Use Type: marijuana Exam Narrative Exam Narrative: GENERAL: [40] year old patient appears stated age. Well- nourished, well-developed patient, in mild distress. Slurring words, smells of alcohol. HEAD: Atraumatic. Normocephalic. EYES: Pupils equal round and reactive. Extraocular motions intact. No scleral icterus. No injection or drainage. ENT: Nose without bleeding, purulent drainage. Throat without erythema, tonsillar hypertrophy or exudate. Airway patent. NECK: Trachea midline. Non tender CARDIOVASCULAR: Regular rate and rhythm without murmurs, gallops, or rubs. RESPIRATORY: Clear to auscultation. Breath sounds equal bilaterally. No wheezes, rales, or rhonchi. GASTROINTESTINAL: Abdomen soft, non-tender, nondistended. EXTREMITIES: No edema or joint tenderness. BACK: Nontender without deformity or crepitance. No flank tenderness. NEURO: AOx3. SKIN: No rash or erythema of visible areas Initial Vital Signs Initial Vital Signs: Vital Signs Temperature 98 F 12/19/20 10:03 Pulse Rate 98 H 12/19/20 10:03 Respiratory Rate 14 12/19/20 10:03 Blood Pressure 162/99 H 12/19/20 10:03 Pulse Oximetry 96 12/19/20 10:03 Course Course Course Narrative: Initially patient wishes to pursue possible detox, but as he belinda up he refuses. He is now speaking clearly without slurring and ambulating in a straight line without stumbling. He has demonstrated capacity to make his own decision. He did briefly speak with our DIRECT OF REAL ESTATE. Orders Ordered: ED Orders 12/19/20 10:35 Complete Blood Count AUTO DIFF Stat Comprehensive Metabolic Panel Stat Ethanol (ETOH) Stat Thyroid Stimulating Hormone Stat 12/19/20 10:40 Urinalysis and Microscopic Stat Urine Drug Screen, Rapid Stat 12/19/20 12:05 Consult to DIRECT OF REAL ESTATE - Leather Production Machine Operator Stat Discontinued Medications Lorazepam (Lorazepam 2 Mg/Ml Inj) 1 mg IV NOW ONE Stop: 12/19/20 10:56 Last Admin: 12/19/20 11:08 Dose: 1 mg Documented by: VELVET Lorazepam (Lorazepam 2 Mg/Ml Inj) 0.5 mg IV NOW ONE Stop: 12/19/20 13:40 Last Admin: 12/19/20 13:48 Dose: 0.5 mg Documented by: VELVET Vital Signs Vital signs: Vital Signs - 8 hr 12/19/20 10:03 12/19/20 12:46 12/19/20 15:08 Temperature 98 F Pulse Rate 98 H 88 92 H Respiratory Rate 14 18 18 Blood Pressure 162/99 H 145/88 H Pulse Oximetry 96 93 95 MDM - Alcohol Lab Data Result diagrams: 12/19/20 10:35 12/19/20 10:35 Labs: Lab Results 12/19/20 12/19/20 12/19/20 Range/Units 10:35 10:35 10:35 WBC 9.5 (4.5-11.0) X10^3/uL RBC 4.46 L (4.5-5.9) X10^6/uL Hgb 14.3 (13.5-17.5) g/dL Hct 41.9 (41-53) % MCV 94.1 (80-100) fL MCH 32.0 (26-34) PG MCHC 34.0 (30-36) % RDW 13.6 (11.6-14.8) % Plt Count 183 (150-400) X10^3/uL Neut % (Auto) 60.5 (50-75) % Lymph % (Auto) 28.9 (25-40) % [place] % (Auto) 8.9 (3-14) % Eos % (Auto) 0.5 L (2-4) % Baso % (Auto) 1.2 (0-2) % Neut # (Auto) 5700 (0340-0204) /uL Lymph # (Auto) 2700 (5853-4187) /uL [place] # (Auto) 800 (0-900) /uL Eos # (Auto) 0 (0-450) /uL Baso # (Auto) 100 (0-100) /uL Sodium 139 (137-145) mmol/L Potassium 3.7 (3.4-5.1) mmol/L Chloride 104 (98-107) mmol/L Carbon Dioxide 25 (22-32) mmol/L BUN 13 (9-20) mg/dL Creatinine 0.66 (0.66-1.25) mg/dL Estimated GFR > 60.0 (>60) mL/min BUN/Creatinine Ratio 19.7 (6-22) Glucose 102 H (70-100) mg/dL Calcium 10.3 H (8.4-10.2) mg/dL Total Bilirubin 0.3 (0.2-1.3) mg/dL AST 79 H (17-59) IU/L ALT 97 H (<50) IU/L Alkaline Phosphatase 58 (38-126) U/L Total Protein 8.1 (6.3-8.2) g/dL Albumin 4.9 (3.5-5.0) g/dL Globulin 3.2 (1.7-4.1) g/dL Albumin/Globulin Ratio 1.5 (1.0-2.8) TSH 1.75 (0.47-4.68) uIU/mL Urine Color Urine Appearance Urine pH (4.5-8.0) Ur Specific [place] (1.000-1.035) Urine Protein (Negative) Urine Glucose (UA) (Negative) g/dL Urine Ketones (NEGATIVE) Urine Occult Blood (Negative) Urine Nitrate (Negative) Urine Bilirubin (NEGATIVE) Urine Urobilinogen (0.2) E.U./dL Ur Leukocyte Esterase (NEGATIVE) Urine RBC (0-5/HPF) Urine WBC (0-5/HPF) Urine Bacteria (None) Ur Culture Indicated? Micro UA Comment U Opiates 300ng/mL cut (Negative) Ur Oxycodone Screen (Negative) Urine Methadone Screen (Negative) Ur Barbiturates Screen (Negative) U Tricyclic Antidepress (Negative) Ur Phencyclidine Scrn (Negative) Ur Amphetamines Screen (Negative) U Methamphetamines Scrn (Negative) Ur MDMA Scrn (Ecstasy) (Negative) U Benzodiazepines Scrn (Negative) Urine Cocaine Screen (Negative) U Marijuana (THC) Screen (Negative) Ethyl Alcohol 200 H ( - 10) mg/dL 12/19/20 12/19/20 Range/Units 10:40 10:40 WBC (4.5-11.0) X10^3/uL RBC (4.5-5.9) X10^6/uL Hgb (13.5-17.5) g/dL Hct (41-53) % MCV (80-100) fL MCH (26-34) PG MCHC (30-36) % RDW (11.6-14.8) % Plt Count (150-400) X10^3/uL Neut % (Auto) (50-75) % Lymph % (Auto) (25-40) % [place] % (Auto) (3-14) % Eos % (Auto) (2-4) % Baso % (Auto) (0-2) % Neut # (Auto) (2445-7576) /uL Lymph # (Auto) (6294-6510) /uL [place] # (Auto) (0-900) /uL Eos # (Auto) (0-450) /uL Baso # (Auto) (0-100) /uL Sodium (137-145) mmol/L Potassium (3.4-5.1) mmol/L Chloride (98-107) mmol/L Carbon Dioxide (22-32) mmol/L BUN (9-20) mg/dL Creatinine (0.66-1.25) mg/dL Estimated GFR (>60) mL/min BUN/Creatinine Ratio (6-22) Glucose (70-100) mg/dL Calcium (8.4-10.2) mg/dL Total Bilirubin (0.2-1.3) mg/dL AST (17-59) IU/L ALT (<50) IU/L Alkaline Phosphatase (38-126) U/L Total Protein (6.3-8.2) g/dL Albumin (3.5-5.0) g/dL Globulin (1.7-4.1) g/dL Albumin/Globulin Ratio (1.0-2.8) TSH (0.47-4.68) uIU/mL Urine Color Yellow Urine Appearance Clear Urine pH 6.0 (4.5-8.0) Ur Specific [place] <=1.005 (1.000-1.035) Urine Protein Negative (Negative) Urine Glucose (UA) Negative (Negative) g/dL Urine Ketones Negative (NEGATIVE) Urine Occult Blood Negative (Negative) Urine Nitrate Negative (Negative) Urine Bilirubin Negative (NEGATIVE) Urine Urobilinogen 0.2 (0.2) E.U./dL Ur Leukocyte Esterase Negative (NEGATIVE) Urine RBC None seen (0-5/HPF) Urine WBC None seen (0-5/HPF) Urine Bacteria None seen (None) Ur Culture Indicated? Cult not indicated Micro UA Comment Microscopic normal U Opiates 300ng/mL cut Negative (Negative) Ur Oxycodone Screen Negative (Negative) Urine Methadone Screen Negative (Negative) Ur Barbiturates Screen Negative (Negative) U Tricyclic Antidepress Negative (Negative) Ur Phencyclidine Scrn Negative (Negative) Ur Amphetamines Screen Negative (Negative) U Methamphetamines Scrn Negative (Negative) Ur MDMA Scrn (Ecstasy) Negative (Negative) U Benzodiazepines Scrn Negative (Negative) Urine Cocaine Screen Negative (Negative) U Marijuana (THC) Screen Negative (Negative) Ethyl Alcohol ( - 10) mg/dL Discharge Plan Departure Patient Disposition: Home Clinical Impression: Alcohol intoxication Qualifiers: Complication of substance-induced condition: uncomplicated Qualified Code(s): F10.920 - Alcohol use, unspecified with intoxication, uncomplicated Instructions: DI for Alcohol Use Disorder Activity Restrictions/Additional Instructions: *You have been diagnosed with [alcohol intoxication and abuse] *What to do: *Take medications as directed *Follow up with your primary care provider in 2-3 days, call for an appointment. Let them know you were seen in the Emergency Department and that we ask that you be seen in follow up *Return to ER if you should have any new, worsening or concerning symptoms Prescriptions: No Action emtricitabine-tenofovir (TDF) [Truvada] 200-300 mg tablet 1 tab PO DAILY Qty: 90 RF: 0 loperamide [Imodium A-D] 2 mg tablet 2 mg PO Q4H PRN (Reason: loose stool) Qty: 90 RF: 0 methocarbamol [Robaxin-750] 750 mg tablet 750 mg PO Q8H PRN (Reason: pain and spasm) Qty: 60 RF: 0 prazosin 1 mg capsule 1 mg PO QPM Qty: 30 RF: 0 Chantix Starting Month Box 0.5 mg (11)- 1 mg (42) tablets,dose pack See Rx Instructions PO PER PKG DIR Qty: 53 RF: 0 zolpidem 10 mg tablet 10 mg PO BEDTIME PRN (Reason: insomnia) Qty: 30 RF: 0 risperidone 2 mg tablet 4 mg PO BEDTIME RF: 0 escitalopram oxalate [Lexapro] 20 mg tablet 20 mg PO QAM RF: 0 lisinopril 20 mg tablet 20 mg PO QAM RF: 0 naltrexone 50 mg tablet 50 mg PO QAM RF: 0 alprazolam 0.25 mg tablet 0.25 mg PO DAILY PRN (Reason: Anxiety) RF: 0 gabapentin 300 mg capsule 300 mg PO TID RF: 0 Referrals: Alcohol [facility] [Outside] Alcohol [facility] [Outside] Alcohol [facility] [Outside] Chip Gonzalez MD [Primary Care Provider] -
[2020-12-19] MEDS: LORazepam 2 MG/ML INJ 1 MG IV (11:08)
--- NOTE | 2020-12-19 11:08 | PC.NURSE ---
Pt is calm but doesnt want to stay in bed or sit still. We keep assisting him back into bed and making sure he doesnt fall. Food tray ordered for lunch
[2020-12-19 11:32] LABS: Thyroid Stimulating Hormone 1.75 uIU/mL (0.47-4.68)
[2020-12-19 12:46] VITALS: PULSE 88; RESP 18; O2SAT 93
--- NOTE | 2020-12-19 13:04 | PC.NURSE ---
Pt walked to the bathroom with two assist. Pt still has an unsteady gait but is interacting better with staff.
[2020-12-19] MEDS: LORazepam 2 MG/ML INJ 0.5 MG IV (13:48)
[2020-12-19 15:08] VITALS: BP 145/88; PULSE 92; RESP 18; O2SAT 95
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
== END 2020-12-19 15:13 | disposition home or self-care (01) ==
PROVIDERS: Emergency Provider Emergency Medicine; Family Provider Family Medicine; PCP Family Medicine; Referring Provider Emergency Medicine
DX: F10.920 Alcohol use, unspecified with intoxication, uncomplicated (principal); Y90.7 Blood alcohol level of 200-239 mg/100 ml
CPT/HCPCS: 36415; 80053; 80305; 80320; 81001; 84443; 85025; 96374; 96376; 99284; J2060

== ENCOUNTER 2021-01-31 23:59 | Emergency (ER) | payer OTHER, MEDICAID, SELFPAY ==
[2021-02-01 00:03] VITALS: BP 142/91; PULSE 97; RESP 20; O2SAT 94
[2021-02-01 00:05] VITALS: BP 142/91; PULSE 98; RESP 21; TEMP 36.6; O2SAT 96; BMI 35.5
--- NOTE | 2021-02-01 00:07 | ED.GENADULT ---
HPI - General Adult General Chief complaint: Seizure Stated complaint: possible seizure Time Seen by Provider: 02/01/21 00:02 Source: patient and EMS Mode of arrival: EMS Limitations: no limitations History of Present Illness HPI narrative: Patient is a 40-year-old male. He has been seen by myself another individual's in our emergency department in the past for alcohol abuse and also suicidal ideation. He comes to the emergency department today by EMS after his partner contacted them for concern of seizure-like activity. Per report the patient has had alcohol withdrawal seizures in the past but he states that he has not had any alcohol to drink since December 19 which is about 6 weeks ago. Per report patient was lying in bed when he started shaking. By the time EMS arrived the shaking had stopped however he did seem somewhat confused. Per their report he has improved in mentation and orientation during their drive here to the emergency department. Here in the ER patient states that he does feels very tired. He states he remembers laying in bed and then starting to feel very weird and then the next thing he remembers is being in any ambulance coming to the emergency department. He states he has never had a seizure in the past not related alcohol withdrawal. Related Data Previous Rx's Medication Instructions Recorded loperamide 2 mg tablet 2 mg PO Q4H PRN #90 tab 11/28/20 prazosin 1 mg capsule 1 mg PO QPM #30 cap 11/28/20 alprazolam 1 mg tablet 1 mg PO TID #42 tab 01/21/21 emtricitabine 200 mg-tenofovir 1 tab PO DAILY #90 tab 01/28/21 disoproxil fumarate 300 mg tablet gabapentin 300 mg capsule 300 mg PO TID PRN #60 cap 01/28/21 haloperidol 10 mg tablet 10 mg PO BEDTIME #30 tab 01/28/21 lisinopril 30 mg tablet 30 mg PO DAILY #60 tab 01/28/21 methocarbamol 750 mg tablet 750 mg PO Q8H PRN #30 tab 01/28/21 naltrexone 50 mg tablet 100 mg PO QAM #60 tab 01/28/21 trazodone 50 mg tablet 50 mg PO BEDTIME PRN #30 tab 01/28/21 Allergies Allergy/AdvReac Type Severity Reaction Status Date / Time tramadol AdvReac Severe Seizure Verified 01/28/21 15:49 hydrocodone AdvReac Intermediate ITCHING Verified 01/28/21 15:49 Review of Systems Constitutional Constitutional: Reports fatigue, Denies fever(s) and Denies headache(s) Eyes Eyes: Denies change in vision ENT Ears, Nose, Mouth, and Throat: Denies vertigo, Denies dizziness, Denies headache(s) and Denies sore throat Cardiovascular Cardiovascular: Denies chest pain and Denies dyspnea Respiratory Respiratory: Denies dyspnea Gastrointestinal Gastrointestinal: Denies abdominal pain, Denies nausea and Denies vomiting Genitourinary Genitourinary: Denies dysuria Genitourinary: Denies dysuria Musculoskeletal Musculoskeletal: Reports myalgias Integumentary/Breasts Skin/Breast: Denies lesions and Denies rash Neurologic Neurologic: Reports confusion, Denies vertigo, Denies dizziness and Denies headache(s) Comments: Seizure-like activity Psychiatric Psychiatric: Reports confusion, Reports depression and Denies suicidal ideation Endocrine Endocrine: Reports fatigue Hematologic/Lymphatic On Anticoagulants: No Allergic/Immunologic Allergic/Immunologic: Denies urticaria Patient History Medical History Acute depression JEREMIE (acute kidney injury) Anesthesia in both legs Atrial fibrillation Cervicalgia Chronic diarrhea Hypertension Insomnia Klebsiella pneumonia Left testicular pain Moderate dependence on smoking Obesity Opiate abuse, episodic Right shoulder pain Schizo affective schizophrenia Spondylosis of cervical spine Suicidal behavior with attempted self-injury Surgical History Hx of shoulder surgery Hx of tonsillectomy Umbilical hernia Family History Father Hypertension Cancer Brother Hypertension Gallstones Diabetes mellitus Mother Diabetes mellitus Sister Diabetes mellitus Grandmother Diabetes mellitus Grandfather Stroke Social History marital status: unknown household members: significant other Smoking Status: Former smoker alcohol intake: former substance use type: does not use Smoking Status: Former smoker alcohol intake frequency: other Substance Use Type: marijuana Exam Initial Vital Signs Initial Vital Signs: Vital Signs Pulse Rate 97 H 02/01/21 00:03 Respiratory Rate 20 02/01/21 00:03 Blood Pressure 142/91 H 02/01/21 00:03 Pulse Oximetry 94 02/01/21 00:03 Const General: cooperative, comfortable, well developed and well groomed Limitations: mental status not altered [facility] Head: normal to inspection and normocephalic Mouth: oral mucosae normal Eyes General: appearance normal, both eyes and all related structures Resp Effort & Inspection: normal respiratory effort Auscultation: clear to auscultation bilaterally Cardio Rate: regular rate Rhythm: regular rhythm GI Inspection: non-distended Palpation: soft Skin Lesions: no lesions Rashes: no rashes Neuro General: patient alert, patient awake and patient oriented x3 Cognition: normal cognition Speech: speech normal Sensory Exam: no sensory deficits noted Extrem General: normal to inspection and capillary refill normal Psych Appearance: grossly normal and well kempt Scores GCS Geovani coma scale eye opening: Spontaneous Geovani coma scale verbal response: Orientated Geovani coma scale motor response: Obey commands [place] coma scale total score: 15 Course Orders Ordered: ED Orders 02/01/21 00:24 Basic Metabolic Panel Stat Complete Blood Count AUTO DIFF Stat Ethanol (ETOH) Stat Prolactin Stat Discontinued Medications Sodium Chloride (Normal Saline 0.9%) 1,000 mls @ 1,000 mls/hr IV BOLUS ONE Stop: 02/01/21 01:06 Vital Signs Vital signs: Vital Signs - 8 hr 02/01/21 00:03 02/01/21 00:05 02/01/21 00:30 Temperature 97.9 F Pulse Rate 97 H 98 H 84 Respiratory Rate 20 21 20 Blood Pressure 142/91 H 142/91 H 128/75 Pulse Oximetry 94 96 95 02/01/21 01:00 02/01/21 01:30 Temperature Pulse Rate 81 83 Respiratory Rate 17 18 Blood Pressure 120/69 127/77 Pulse Oximetry 93 93 Medical Decision Making Medical Records Medical records reviewed: Yes I reviewed the patient's medical records. Lab Data Lab results reviewed: Yes I reviewed the patient's lab results. Result diagrams: 02/01/21 00:24 02/01/21 00:24 Labs: Lab Results 02/01/21 02/01/21 Range/Units 00:24 00:24 WBC 6.6 (4.5-11.0) X10^3/uL RBC 4.22 L (4.5-5.9) X10^6/uL Hgb 13.0 L (13.5-17.5) g/dL Hct 38.8 L (41-53) % MCV 91.9 (80-100) fL MCH 30.8 (26-34) PG MCHC 33.5 (30-36) % RDW 14.4 (11.6-14.8) % Plt Count 135 L (150-400) X10^3/uL Neut % (Auto) 53.3 (50-75) % Lymph % (Auto) 33.6 (25-40) % Towns % (Auto) 8.8 (3-14) % Eos % (Auto) 4.2 H (2-4) % Baso % (Auto) 0.1 (0-2) % Neut # (Auto) 3500 (3172-6952) /uL Lymph # (Auto) 2200 (3171-9826) /uL Towns # (Auto) 600 (0-900) /uL Eos # (Auto) 300 (0-450) /uL Baso # (Auto) 0 (0-100) /uL Sodium 139 (137-145) mmol/L Potassium 3.6 (3.4-5.1) mmol/L Chloride 107 (98-107) mmol/L Carbon Dioxide 22 (22-32) mmol/L BUN 5 L (9-20) mg/dL Creatinine 0.52 L (0.66-1.25) mg/dL Estimated GFR > 60.0 (>60) mL/min BUN/Creatinine Ratio 9.6 (6-22) Glucose 123 H (70-100) mg/dL Calcium 9.6 (8.4-10.2) mg/dL Prolactin 64.6 H (3.7-17.9) ng/mL Ethyl Alcohol < 10 ( - 10) mg/dL [facility] Narrative Medical decision making narrative: Patient had no seizure-like activity and has been alert oriented x3 since arrival here in the emergency department. His alcohol level was 0 and he states he has not had anything to drink in the past 6 weeks. This is true then any seizure-like activity today is unrelated to alcohol withdrawal issue. He does have an elevated prolactin. Given his presentation I would not be surprised if he did have a seizure. He has no focal neuro deficits here in the ER. His blood sugars unremarkable. Electrolytes are unremarkable. I did inform him that he needs to contact his primary doctor about the indications for referral to Neurology. We will hold on starting on any anti seizure medications this evening. He was informed that he cannot drive and to use cleared by either his primary doctor or a neurologist. He expressed understanding and agreement with this. He was given return precautions. Discharge Plan Departure Patient Disposition: Home Clinical Impression: Seizure-like activity Instructions: DI for Seizure (Not Epilepsy/Seizure Disorder) Activity Restrictions/Additional Instructions: I am not 100% sure that you had a seizure earlier this evening however which you described is certainly concerning for this. Your labs here in the emergency department are unremarkable. Given the fact that you have not had any alcohol in the past 6 weeks if this was a seizure it is not related to alcohol withdrawal. I recommend you contact your primary provider for follow-up to discuss the indications for referral to see Neurology. Unfortunately because there is concern that this was a seizure your not to drive until you are cleared by your primary doctor or a neurologist. Continue all of your medications as directed. Return to the emergency department for any new or worsening symptoms. Prescriptions: No Action loperamide [Imodium A-D] 2 mg tablet 2 mg PO Q4H PRN (Reason: loose stool) Qty: 90 RF: 0 prazosin 1 mg capsule 1 mg PO QPM Qty: 30 RF: 0 alprazolam 1 mg tablet 1 mg PO TID Qty: 42 RF: 0 emtricitabine-tenofovir (TDF) [Truvada] 200-300 mg tablet 1 tab PO DAILY Qty: 90 RF: 0 naltrexone 50 mg tablet 100 mg PO QAM Qty: 60 RF: 0 methocarbamol [Robaxin-750] 750 mg tablet 750 mg PO Q8H PRN (Reason: pain and spasm) Qty: 30 RF: 0 gabapentin 300 mg capsule 300 mg PO TID PRN (Reason: pain) Qty: 60 RF: 0 haloperidol 10 mg tablet 10 mg PO BEDTIME Qty: 30 RF: 0 lisinopril 30 mg tablet 30 mg PO DAILY Qty: 60 RF: 0 trazodone 50 mg tablet 50 mg PO BEDTIME PRN (Reason: insomnia) Qty: 30 RF: 0 Referrals: Chip Gonzalez MD [Primary Care Provider] -
[2021-02-01 00:30] VITALS: BP 128/75; PULSE 84; RESP 20; O2SAT 95
[2021-02-01 00:38] LABS: Add Manual Diff / Slide Review NO; Basophils Absolute Auto 0 /uL (0-100); Basophils Percent Auto 0.1 % (0-2); Eosinophils Absolute Auto 300 /uL (0-450); Eosinophils Percent Auto 4.2 % (2-4); HEMOLYSIS 42 (0-50); Hematocrit 38.8 % (41-53); Lymphocytes Absolute Auto 2200 /uL (1100-4500); Lymphocytes Percent Auto 33.6 % (25-40); Mean Corpuscular HGB Conc 33.5 % (30-36); Mean Corpuscular Hemoglobin 30.8 PG (26-34); Mean Corpuscular Volume 91.9 fL (80-100); Monocytes Absolute Auto 600 /uL (0-900); Monocytes Percent Auto 8.8 % (3-14); Neutrophils Absolute Auto 3500 /uL (1500-7000); Neutrophils Percent Auto 53.3 % (50-75); Platelet Count 135 X10^3/uL (150-400); Red Blood Cell Count 4.22 X10^6/uL (4.5-5.9); Red Cell Distribution Width 14.4 % (11.6-14.8); White Blood Cell Count 6.6 X10^3/uL (4.5-11.0)
[2021-02-01 00:43] LABS: BUN Creatinine Ratio 9.6 (6-22); Blood Urea Nitrogen 5 mg/dL (9-20); Calcium 9.6 mg/dL (8.4-10.2); Carbon Dioxide 22 mmol/L (22-32); Chloride 107 mmol/L (98-107); Estimated Glomerular Filt Rate > 60.0 mL/min (>60); Glucose 123 mg/dL (70-100); Potassium 3.6 mmol/L (3.4-5.1); Sodium 139 mmol/L (137-145)
[2021-02-01 01:00] VITALS: BP 120/69; PULSE 81; RESP 17; O2SAT 93
[2021-02-01 01:15] LABS: Ethanol (ETOH) < 10 mg/dL
[2021-02-01 01:30] VITALS: BP 127/77; PULSE 83; RESP 18; O2SAT 93
[2021-02-01 01:33] LABS: Prolactin 64.6 ng/mL (3.7-17.9)
== END 2021-02-01 01:49 | disposition home or self-care (01) ==
PROVIDERS: Emergency Provider Emergency Medicine; Family Provider Family Medicine; PCP Family Medicine
DX: R56.9 Unspecified convulsions (principal)
CPT/HCPCS: 36415; 80048; 80320; 84146; 85025; 99283